=== PATIENT | female | born 1950 | race Caucasian/White ===

== ENCOUNTER 2017-03-10 07:04 | Day surgery (SDC) | payer BC ==
[~2017-03-10 07:04] MED LIST: Buffered Lidocaine 1% SYRIN* 3 ML/SYR SYRINGE INTRADERM ONE; Dexamethasone IV* 4 MG/ML 1 ML (4 MG) IV SLOW PU ONE; Famotidine IV* 10 MG/ML 2 ML (20 mg) IV ONE
[2017-03-10] MEDS ORDERED: Clindamycin 900 MG IVPREMIX(* 900 MG/50 ML SDV IV ONE (07:47)
[2017-03-10] MEDS ORDERED: Dexamethasone IV* 4 MG/ML 1 ML (4 MG) ONE (07:47)
[2017-03-10] MEDS ORDERED: Famotidine IV* 10 MG/ML 2 ML (20 mg) ONE (07:47)
[2017-03-10] MEDS ORDERED: Bupivacaine 0.25% SDV* 30 ML ONE (08:27)
[2017-03-10] MEDS ORDERED: Mineral Oil Sterile, TOPICAL* 25 ML BTL ONE (08:27)
[2017-03-10] MEDS ORDERED: Methylene Blue 0.5 %* 50 MG/10 ML AMP IV ONE (08:27)
[2017-03-10] MEDS ORDERED: Lidocain 1% EPI 1:100,000 * 30 ML MDV ONE (08:27)
[2017-03-10] MEDS ORDERED: Ondansetron INJ* 2 MG/ML VIAL ONE (08:31)
[2017-03-10] MEDS ORDERED: Ketorolac INJ* 30 MG/ML 1 ML VIAL ONE (08:31)
[2017-03-10] MEDS ORDERED: fentaNYL* 50 MCG/ML 2 ML VIAL (100 MCG VIAL) ONE (08:31)
[2017-03-10] MEDS ORDERED: Propofol* 10 MG/ML 20 ML BTL IV PUSH ONE (08:31)
[2017-03-10] MEDS ORDERED: Midazolam* 1 MG/ML 5 ML VIAL (5 MG) ONE (08:31)
[2017-03-10 10:16] VITALS: BP 102/61
== END 2017-03-10 10:29 | disposition home or self-care (01) ==
LOC: OR 07:04
PROVIDERS: ATTEND Plastic Surgery
DX: C43.62 Malignant melanoma of left upper limb, including shoulder (principal); R00.2 Palpitations
CPT/HCPCS: 88305; J1100; J1885; J2250; J2405; J2704; J3010

== ENCOUNTER 2018-11-25 12:25 | Emergency (ER) | payer BC ==
[2018-11-25 12:42] VITALS: BP 127/92
--- NOTE | 2018-11-25 13:07 | UC ---
Laceration HPI - HPI Summary HPI Summary: Caught right index finger in a door jamb, with metal door hitting her finger and lacerating the distal digit. Believes tetanus is up to date, but elects to get one today - History Of Current Complaint Chief Complaint: UCUpperExtremity Stated Complaint: FINGER INJURY Time Seen by Provider: 11/25/18 12:54 Hx Obtained From: Patient Laceration Location: Finger Mechanism Of Injury: Blunt Trauma Onset/Duration: Sudden Onset Pain Intensity: 4 - Allergies/Home Medications Allergies/Adverse Reactions: Allergies Allergy/AdvReac Type Severity Reaction Status Date / Time mercury (elemental) Allergy Unknown Verified 11/25/18 12:42 Reaction Details Penicillins Allergy Hives Verified 11/25/18 12:42 PMH/Surg Hx/FS Hx/Imm Hx Previously Healthy: Yes Cancer History: Other - melanoma left forearm - Surgical History Surgical History: Yes Surgery Procedure, Year, and Place: COLONOSCOPY ONLY. 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 [employer] Lives: With Family Alcohol Use: Weekly Alcohol Amount: 3 GLASSES OF WINE AT MOST Substance Use Type: None Smoking Status (MU): Never Smoked Tobacco Review of Systems All Other Systems Reviewed And Are Negative: Yes Constitutional: Positive: Negative Skin: Positive: Other - laceration Eyes: Positive: Negative ENT: Positive: Negative Respiratory: Positive: Negative Cardiovascular: Positive: Negative Gastrointestinal: Positive: Negative Genitourinary: Positive: Negative Motor: Positive: Negative Neurovascular: Positive: Negative Musculoskeletal: Positive: Negative Neurological: Positive: Negative Psychological: Positive: Negative Is Patient Immunocompromised?: No Physical Exam Triage Information Reviewed: Yes Appearance: Well-Appearing, No Pain Distress Vital Signs: Initial Vital Signs Temp 98.6 F 11/25/18 12:37 Pulse 71 11/25/18 12:37 Resp 18 11/25/18 12:37 BP 127/92 11/25/18 12:37 Pulse Ox 98 11/25/18 12:37 Respiratory Exam: Normal Respiratory: Positive: Lungs clear Cardiovascular Exam: Normal Musculoskeletal Exam: Normal, Other - no pain with flexion of DIP or PIP of 4th digit. Musculoskeletal: Positive: ROM Intact - right hand second digit. Neurological: Positive: Alert Psychological Exam: Normal Skin Exam: Other - laceration distal second digit right hand Images Hands: 1 - laceration from mid nail base along lateral border, extending to palmar surface, where the lac is not full thickness. Laceration Repair - Laceration Repair 1 Description: Irregular - flap laceration distal digit, along lateral border of nail. Laceration Size After Repair: Length (cm) - 3, Width (mm) - 0 Modified For Repair: No Type Injection: Digital - digital block along lateral border of digit. Required second injection along border of laceration of 1.5 cc to get full anaesthesia Anesthesia Used: 2.0% Lido Irrigation With Pressure Irrigation Device: Yes Closure Material: Sutures - After digital block obtained, flap lifting, intact nail bed with no loosening. lateral nail fold sheared, but nail intact Closure Method: Single Layer Laceration Course/Dx - Course/Dx Course Of Treatment: repair of laceration of right hand second digit. - Differential Dx - Laceration/Wound Differental Diagnoses: Laceration - Diagnosis Provider Diagnosis: Laceration of index finger of right hand without complication Discharge - Sign-Out/Discharge Documenting (check all that apply): Patient Departure All imaging exams completed and their final reports reviewed: No Studies - Discharge Plan Condition: Stable Disposition: HOME Patient Education Materials: Finger Laceration (ED), Diphtheria/Pertussis/ Tetanus Vaccine (By injection) Referrals: Dior Benítez MD [Primary Care Provider] - Additional Instructions: You have had a [id number] booster today. Please have the sutures removed in 8 or 9 days--around December 04. Keep the wound clean and dry, and avoid typing with that digit. Monitor for infection. The swelling should decrease after 1 to 2 days, although I suspect that you will have some bruising of the finger. After several days, you can clean the wound and dry it well, with a light application of antibiotic ointment. You can remove the steristrips in 2 or 3 days--they will likely loosen in that time. - Billing Disposition and Condition Condition: STABLE Disposition: Home
[2018-11-25] MEDS ORDERED: Lidocaine 2% PF * 5 ML VIAL INJ ONE ×2 (13:10→13:40)
[2018-11-25] MEDS ORDERED: Lidocaine 2% PF * 5 ML VIAL ONE (13:14)
[2018-11-25] MEDS ORDERED: Tetan/Diph/Pertus SYR(Tdap)* 0.5 ML SYR(BOOSTRIX) use SYR IM ONE (14:12)
== END 2018-11-25 14:30 | disposition home or self-care (01) ==
LOC: UCEAST 12:25
DX: S61.210A Laceration without foreign body of right index finger without damage to nail, initial encounter (principal); Z91.048 Other nonmedicinal substance allergy status; Z88.0 Allergy status to penicillin; W23.0XXA Caught, crushed, jammed, or pinched between moving objects, initial encounter; Y92.9 Unspecified place or not applicable
CPT/HCPCS: 12002; 90471; 90715; 99211; G0463

== ENCOUNTER 2019-07-03 11:14 | Emergency (ER) | payer BC ==
[2019-07-03 12:14] LABS: ABS Basophils 0.1 10^3/ul (0-0.2); ABS Eosinophils 0.1 10^3/ul (0-0.6); ABS Lymphocytes 2.2 10^3/ul (1.0-4.8); ABS Monocytes 0.4 10^3/ul (0-0.8); Eosinophil % 1.1 %; Hematocrit 42 % (35-47); Hemoglobin 13.9 g/dL (12.0-16.0); Lymphocyte % 38.9 %; Mean Corpuscular HGB Conc 33 g/dL (31-36); Mean Corpuscular Hemoglobin 30 pg (27-31); Mean Corpuscular Volume 90 fL (80-97); Mean Platelet Volume 7.8 fL (7.4-10.4); Platelet Count 226 10^3/uL (150-450); Red Blood Count 4.63 10^6 /uL (3.70-4.87); Red Cell Distribution Width 14 % (10-15); White Blood Count 5.8 10^3/uL (3.5-10.8)
[2019-07-03 12:21] LABS: INR 0.95 (0.82-1.09)
[2019-07-03 12:47] LABS: Albumin/Globulin Ratio 1.2 (1-3); BUN/Creatinine Ratio 20.5 (8-20); Calcium 9.4 mg/dL (8.6-10.3); EGFR African American 96.2 (>60); EGFR Non-African American 79.5 (>60); Globulin 3.3 g/dL (2-4); Potassium 4.3 mmol/L (3.5-5.0); Total Bilirubin 0.4 mg/dL (0.2-1.0); Total Protein 7.3 g/dL (6.4-8.9)
[2019-07-03 12:48] LABS: Troponin I 0.01 ng/mL (<0.04)
--- NOTE | 2019-07-03 13:48 | ED ---
HPI Chest Pain - HPI Summary HPI Summary: Pt is a 69 y/o F presenting to the ED with a chief complaint of chest pain. She states she woke up last night with pressure in her chest, and it waxed and waned for about 20 minutes. She states it feels similar to heartburn, and she also reports dizziness, mild anxiety, and recent travel to [facility], [facility], and [facility]. She denies diaphoresis, SOB, LE edema, cough, or hormone use. - History of Current Complaint Chief Complaint: EDChestPainROMI Time Seen by Provider: 07/03/19 13:22 Hx Obtained From: Patient Onset/Duration: Started Hours Ago, Resolved Timing: Intermittent, Lasting Minutes Initial Severity: Moderate Current Severity: None Pain Intensity: 0 Pain Scale Used: 0-10 Numeric Chest Pain Location: Diffuse, Upper Sternal Chest Pain Radiates: No Character: Pressure/Squeezing Aggravating Factor(s): Nothing Alleviating Factor(s): Spontaneous Resolution Associated Signs and Symptoms: Positive: Chest Pain, Anxiety, Dizziness. Negative: Shortness of Breath, Diaphoresis, Cough, Calf Pain/Swelling - Allergy/Home Medications Allergies/Adverse Reactions: Allergies Allergy/AdvReac Type Severity Reaction Status Date / Time mercury (elemental) Allergy Unknown Verified 11/25/18 12:42 Reaction Details Penicillins Allergy Hives Verified 11/25/18 12:42 PMH/Surg Hx/FS Hx/Imm Hx Previously Healthy: Yes Endocrine/Hematology History: Denies: Hx Diabetes GI History: Reports: Hx Irritable Bowel - CONTROLLED WITH DIET, SYMPTOMS HAVE RESOLVED Musculoskeletal History: Reports: Hx Tendonitis - HEALED WITH RESTING Sensory History: Reports: Hx Cataracts - BEGINNING STAGE BI-LAT, Hx Contacts or Glasses - WEARS GLASSES Denies: Hx Hearing Aid Opthamlomology History: Reports: Hx Cataracts - BEGINNING STAGE BI-LAT, Hx Contacts or Glasses - WEARS GLASSES Psychiatric History: Reports: Hx Anxiety - WHEN PT WAS 37 YRS OLD, BUT NOT SINCE THEN - Cancer History Cancer Type, Location and Year: melanoma Hx Chemotherapy: No Hx Radiation Therapy: No - Surgical History Surgery Procedure, Year, and Place: COLONOSCOPY ONLY. melanoma removal Hx Anesthesia Reactions: No - PT HAS NEVER HAD SURGERY Infectious Disease History: No Infectious Disease History: Reports: Traveled Outside the [place] in Last 30 Days - [facility] - Family History Known Family History: Negative: Diabetes - Social History Alcohol Use: Weekly Alcohol Amount: 3 GLASSES OF WINE AT MOST Hx Substance Use: No Substance Use Type: Reports: None Hx Tobacco Use: No Smoking Status (MU): Never Smoked Tobacco Review of Systems Negative: Skin Diaphoresis Positive: Chest Pain Negative: Shortness Of Breath, Cough Negative: Edema Neurological: Other - dizziness Positive: Anxious All Other Systems Reviewed And Are Negative: Yes Physical Exam - Summary Physical Exam Summary: Constitutional: Well-developed, Well-nourished, Alert. (-) Distressed Skin: Warm, Dry HENT: Normocephalic; Atraumatic Eyes: Conjunctiva normal Neck: Musculoskeletal ROM normal neck. (-) JVD, (-) Stridor, (-) Tracheal deviation Cardio: Rhythm regular, rate normal, Heart sounds normal; Intact distal pulses; The pedal pulses are 2+ and symmetric. Radial pulses are 2+ and symmetric. (-) Murmur Pulmonary/Chest wall: Effort normal. (-) Respiratory distress, (-) Wheezes, (-) Rales Abd: Soft, (-) tenderness, (-) Distension, (-) Guarding, (-) Rebound Musculoskeletal: (-) Edema Lymph: (-) Cervical adenopathy Neuro: Alert, Oriented x3 Psych: Mood and affect Normal Triage Information Reviewed: Yes Vital Signs On Initial Exam: Initial Vitals Temp Pulse Resp BP Pulse Ox 96.9 F 72 18 132/87 99 07/03/19 11:21 07/03/19 11:21 07/03/19 11:21 07/03/19 11:21 07/03/19 11:21 Vital Signs Reviewed: Yes Diagnostics - Vital Signs Vital Signs Temp Pulse Resp BP Pulse Ox 07/03/19 11:21 96.9 F 72 18 132/87 99 - Laboratory Lab Results: Lab Results 07/03/19 07/03/19 07/03/19 Range/Units 12:07 12:07 12:07 WBC 5.8 (3.5-10.8) 10^3/uL RBC 4.63 (3.70-4.87) 10^6 /uL Hgb 13.9 (12.0-16.0) g/dL Hct 42 (35-47) % MCV 90 (80-97) fL MCH 30 (27-31) pg MCHC 33 (31-36) g/dL RDW 14 (10-15) % Plt Count 226 (150-450) 10^3/uL MPV 7.8 (7.4-10.4) fL Neut % (Auto) 51.7 % Lymph % (Auto) 38.9 % [place] % (Auto) 7.2 % Eos % (Auto) 1.1 % Baso % (Auto) 1.1 % Absolute Neuts (auto) 3.0 (1.5-7.7) 10^3/ul Absolute Lymphs (auto) 2.2 (1.0-4.8) 10^3/ul Absolute Monos (auto) 0.4 (0-0.8) 10^3/ul Absolute Eos (auto) 0.1 (0-0.6) 10^3/ul Absolute Basos (auto) 0.1 (0-0.2) 10^3/ul Absolute Nucleated RBC 0.0 10^3/ul Nucleated RBC % 0.0 INR (Anticoag Therapy) 0.95 (0.82-1.09) D-Dimer, Quantitative Pending Sodium 138 (135-145) mmol/L Potassium 4.3 (3.5-5.0) mmol/L Chloride 108 (101-111) mmol/L Carbon Dioxide 26 (22-32) mmol/L Anion Gap 4 (2-11) mmol/L BUN 15 (6-24) mg/dL Creatinine 0.73 (0.51-0.95) mg/dL Est GFR ( Amer) 96.2 (>60) Est GFR (Non-Af Amer) 79.5 (>60) BUN/Creatinine Ratio 20.5 H (8-20) Glucose 99 (70-100) mg/dL Calcium 9.4 (8.6-10.3) mg/dL Total Bilirubin 0.40 (0.2-1.0) mg/dL AST 22 (13-39) U/L ALT 20 (7-52) U/L Alkaline Phosphatase 71 (34-104) U/L Troponin I 0.01 (<0.04) ng/mL Total Protein 7.3 (6.4-8.9) g/dL Albumin 4.0 (3.2-5.2) g/dL Globulin 3.3 (2-4) g/dL Albumin/Globulin Ratio 1.2 (1-3) Result Diagrams: 07/03/19 12:07 07/03/19 12:07 Lab Statement: Any lab studies that have been ordered have been reviewed, and results considered in the medical decision making process. - Radiology CXR Radiology Interpretation Completed By: Radiologist Summary of Radiographic Findings: No active cardiopulmonary disease. ED physician has reviewed this report. - EKG 1116 Cardiac Rate: NL - 69bpm EKG Rhythm: Sinus Rhythm ST Segment: Non-Specific Ectopy: None Summary of EKG Findings: EKG at 1116 shows NSR at 69bpm with biphasic T waves in V2 and V3. No STEMI, otherwise nml EKG. Re-Evaluation - Re-Evaluation 1st re-eval Re-Evaluation Time: 15:00 Change: Improved Comment: The pt states that the Maalox helped alleviate her pain. Upon further questioning, the pt revealed that she ate spicy food, drank coffee, as well as drank alcohol late last night, so this is likely to have caused the heartburn- like pain that she was feeling. Chest Pain Course/Dx - Course Course Of Treatment: Patient is here with an episode of chest pain that occurred last night. Patient's had a similar episode in the past. Patient had serial troponins which showed no elevation. Patient EKG which showed no evidence of ischemia. Patient had a risk factor for PE with recent long- distance travel but had a negative d-dimer here. Patient had a negative chest x -ray for any acute abnormality. Patient's symptoms resolved with ox. Patient did have a diet last night consistent with risk factors for acid reflux. Patient does not need an emergent stress test and was asked to call her PCP today to follow-up for possible stress test. - Diagnoses Provider Diagnoses: Chest pain Discharge - Sign-Out/Discharge Documenting (check all that apply): Patient Departure Patient Received Moderate/Deep Sedation with Procedure: No - Discharge Plan Condition: Stable Disposition: HOME Patient Education Materials: Chest Pain (ED) Referrals: Dior Benítez MD [Primary Care Provider] - Additional Instructions: When you leave the emergency department, please go to the store and purchase Maalox. Additionally, please follow the diet that we discussed while you were in the ED. Follow up with your primary care provider to see if they would like you to have a stress test done. Return to the Emergency Department with any new or worsening symptoms. - Billing Disposition and Condition Condition: STABLE Disposition: Home - Attestation Statements Document Initiated by Mirna: Yes Documenting Scribe: Lizette Rawls Provider For Whom Mirna is Documenting (Include Credential): David Bueno MD. Scribe Attestation: Lizette Callaway, scribed for David Bueno MD. on 07/03/19 at 1540. Scribe Documentation Reviewed: Yes Provider Attestation: The documentation as recorded by the perriibe, Lizette Rawls accurately reflects the service I personally performed and the decisions made by David gallegos MD. Status of Scribe Document: Viewed
[2019-07-03] MEDS ORDERED: Al Hydrox/Mg Hydrox/Simet LIQ* 30 ML UDC PO ONE (14:16)
[2019-07-03 15:49] VITALS: BP 121/77
== END 2019-07-03 15:53 | disposition home or self-care (01) ==
LOC: ED 11:14
DX: R07.9 Chest pain, unspecified (principal); Z88.0 Allergy status to penicillin
CPT/HCPCS: 36415; 71046; 80053; 84484; 85025; 85379; 85610; 93005; 99283; A9270-GY

== ENCOUNTER 2019-07-19 08:46 | Observation (INO) | payer BC ==
[2019-07-19] MEDS ORDERED: Aspirin 81 mg CHEW TAB* 81 MG TAB.CHEW PO ONE (09:14)
[2019-07-19 09:21] LABS: ABS Eosinophils 0.1 10^3/ul (0-0.6); ABS Monocytes 0.4 10^3/ul (0-0.8); ABS Neutrophils 2.3 10^3/ul (1.5-7.7); Eosinophil % 1.4 %; Hematocrit 42 % (35-47); Hemoglobin 14.2 g/dL (12.0-16.0); Mean Corpuscular HGB Conc 34 g/dL (31-36); Mean Corpuscular Hemoglobin 31 pg (27-31); Mean Corpuscular Volume 89 fL (80-97); Mean Platelet Volume 8.1 fL (7.4-10.4); Nucleated Red Blood Cells % 0.1; Platelet Count 228 10^3/uL (150-450); Red Blood Count 4.65 10^6 /uL (3.70-4.87); Red Cell Distribution Width 14 % (10-15); White Blood Count 4.8 10^3/uL (3.5-10.8)
[2019-07-19 10:12] LABS: Troponin I 0.01 ng/mL (<0.04)
[2019-07-19 10:14] LABS: Myoglobin 19.9 ng/mL (14.3-65.8)
[2019-07-19 10:16] LABS: CKMB ng/mL 1.8 ng/mL (0.6-6.3)
[2019-07-19 10:18] LABS: Albumin 4.1 g/dL (3.2-5.2); Albumin/Globulin Ratio 1.3 (1-3); BUN/Creatinine Ratio 18.8 (8-20); Calcium 9.4 mg/dL (8.6-10.3); EGFR African American 80.7 (>60); EGFR Non-African American 66.7 (>60); Globulin 3.1 g/dL (2-4); Potassium 3.7 mmol/L (3.5-5.0); Total Bilirubin 0.6 mg/dL (0.2-1.0); Total Protein 7.2 g/dL (6.4-8.9)
--- NOTE | 2019-07-19 10:31 | ED ---
HPI Chest Pain - HPI Summary HPI Summary: 69 year old F presenting to [facility] accompanied by a female oncology physician assistant with a chief complaint of intermittent chest pain since this morning after feeling mild emotional distress and anxiety induced by a phone call. Patient reports feeling a cramping and burning pain comparable to acid reflux in the center of her chest and pressure slightly above the location of burning, radiating to her neck and occasionally her left arm. Patient rates the overall pain 6/10 in severity. Symptoms aggravated by physical and emotional stimulation. Symptoms alleviated by remaining still. Patient reports having an chest pain episode yesterday 07/18/19 while exercising. After this episode she reported to her primary care physician who found markers in her blood test, such as high cholesterol. Patient also reports a past visit on 07/03/19 for a similar chief complaint. Patient does not have a dehydrator, and had last performed a stress test fifteen years ago. Patient denies smoking but confirms alcohol intake 2x a week, and reports a family history of angina pectoris in her father and breast cancer in her maternal grandmother. Before patient's visit, the ED provider discussed the patient's case with her primary care provider, Dr. Benítez. - History of Current Complaint Chief Complaint: EDChestPainROMI Time Seen by Provider: 07/19/19 08:50 Hx Obtained From: Patient Onset/Duration: Started Hours Ago - this morning today 07/19/19 Timing: Intermittent - patient experienced an episode yesterday Current Severity: Moderate Pain Intensity: 6 Pain Scale Used: 0-10 Numeric Chest Pain Location: Mid Sternal - burning sensation, Upper Sternal - pressure Chest Pain Radiates: Yes Chest Pain Radiates To:: Arm - occasionally left arm, Other - neck Character: Burning - mid sternal, Pressure/Squeezing - upper sternal pressure Aggravating Factor(s): Exertion - exercise onset a chest pain episode yesterday , 07/18/19, Other: - emotional stimulation (i.e. anxiety, excitement) Alleviating Factor(s): Rest - remaining still, per patient - Allergy/Home Medications Allergies/Adverse Reactions: Allergies Allergy/AdvReac Type Severity Reaction Status Date / Time mercury (elemental) Allergy Unknown Verified 07/19/19 09:03 Reaction Details Penicillins Allergy Hives Verified 07/19/19 09:03 Home Medications: Home Medications Aspirin [Adult Low Dose Aspirin EC] 81 mg PO DAILY 07/19/19 [History Confirmed 07/19/19] Omeprazole 20 mg PO DAILY 07/19/19 [History Confirmed 07/19/19] PMH/Surg Hx/FS Hx/Imm Hx Endocrine/Hematology History: Denies: Hx Diabetes GI History: Reports: Hx Irritable Bowel - CONTROLLED WITH DIET, SYMPTOMS HAVE RESOLVED Musculoskeletal History: Reports: Hx Tendonitis - HEALED WITH RESTING Sensory History: Reports: Hx Cataracts - BEGINNING STAGE BI-LAT, Hx Contacts or Glasses - WEARS GLASSES Denies: Hx Hearing Aid Opthamlomology History: Reports: Hx Cataracts - BEGINNING STAGE BI-LAT, Hx Contacts or Glasses - WEARS GLASSES Psychiatric History: Reports: Hx Anxiety - WHEN PT WAS 37 YRS OLD, BUT NOT SINCE THEN - Cancer History Cancer Type, Location and Year: melanoma Hx Chemotherapy: No Hx Radiation Therapy: No - Surgical History Surgery Procedure, Year, and Place: COLONOSCOPY ONLY. melanoma removal Hx Anesthesia Reactions: No - PT HAS NEVER HAD SURGERY Infectious Disease History: No Infectious Disease History: Denies: Traveled Outside the [place] in Last 30 Days - Family History Known Family History: Negative: Diabetes Family History: family history of angia pectoris in her father and breast cancer in her maternal grandmother. - Social History Alcohol Use: Weekly Alcohol Amount: 3 GLASSES OF WINE AT MOST Hx Substance Use: No Substance Use Type: Reports: None Hx Tobacco Use: No Smoking Status (MU): Never Smoked Tobacco Review of Systems Positive: Chest Pain Positive: Other - neck and arm pain radiating occasional from chest All Other Systems Reviewed And Are Negative: Yes Physical Exam - Summary Physical Exam Summary: VITAL SIGNS: Reviewed. GENERAL: Patient is a well-developed and nourished FEMALE who is lying comfortable in the stretcher. Patient is not in any acute respiratory distress. HEAD AND FACE: No signs of trauma. No ecchymosis, hematomas or skull depressions. No sinus tenderness. EYES: PERRLA, EOMI x 2, No injected conjunctiva, no nystagmus. EARS: Hearing grossly intact. Ear canals and tympanic membranes are within normal limits. MOUTH: Oropharynx within normal limits. NECK: Supple, trachea is midline, no adenopathy, no JVD, no carotid bruit, no c- spine tenderness, neck with full ROM. CHEST: Symmetric, no tenderness at palpation. LUNGS: Clear to auscultation bilaterally. No wheezing or crackles. CVS: Regular rate and rhythm, S1 and S2 present, no murmurs or gallops appreciated. ABDOMEN: Soft, non-tender. No signs of distention. No rebound, no guarding, and no masses palpated. Bowel sounds are normal. EXTREMITIES: FROM in all major joints, no edema, no cyanosis or clubbing. NEURO: Alert and oriented x 3. No acute neurological deficits. Speech is normal and follows commands. SKIN: Dry and warm. Triage Information Reviewed: Yes Vital Signs On Initial Exam: Initial Vitals Temp Pulse Resp BP Pulse Ox 98.4 F 63 17 147/93 99 07/19/19 08:58 07/19/19 08:58 07/19/19 08:58 07/19/19 08:58 07/19/19 08:58 Vital Signs Reviewed: Yes Diagnostics - Vital Signs Vital Signs Temp Pulse Resp BP Pulse Ox 07/19/19 09:35 68 29 149/97 97 07/19/19 09:12 99 07/19/19 09:05 68 19 147/97 99 07/19/19 08:58 98.4 F 63 17 147/93 99 - Laboratory Lab Results: Lab Results 07/19/19 07/19/19 07/19/19 Range/Units 09:11 09:11 09:12 WBC 4.8 (3.5-10.8) 10^3/uL RBC 4.65 (3.70-4.87) 10^6 /uL Hgb 14.2 (12.0-16.0) g/dL Hct 42 (35-47) % MCV 89 (80-97) fL MCH 31 (27-31) pg MCHC 34 (31-36) g/dL RDW 14 (10-15) % Plt Count 228 (150-450) 10^3/uL MPV 8.1 (7.4-10.4) fL Neut % (Auto) 47.5 % Lymph % (Auto) 41.0 % [place] % (Auto) 9.2 % Eos % (Auto) 1.4 % Baso % (Auto) 0.9 % Absolute Neuts (auto) 2.3 (1.5-7.7) 10^3/ul Absolute Lymphs (auto) 2.0 (1.0-4.8) 10^3/ul Absolute Monos (auto) 0.4 (0-0.8) 10^3/ul Absolute Eos (auto) 0.1 (0-0.6) 10^3/ul Absolute Basos (auto) 0.0 (0-0.2) 10^3/ul Absolute Nucleated RBC 0.0 10^3/ul Nucleated RBC % 0.1 Sodium 140 (135-145) mmol/L Potassium 3.7 (3.5-5.0) mmol/L Chloride 106 (101-111) mmol/L Carbon Dioxide 28 (22-32) mmol/L Anion Gap 6 (2-11) mmol/L BUN 16 (6-24) mg/dL Creatinine 0.85 (0.51-0.95) mg/dL Est GFR ( Amer) 80.7 (>60) Est GFR (Non-Af Amer) 66.7 (>60) BUN/Creatinine Ratio 18.8 (8-20) Glucose 82 (70-100) mg/dL Lactic Acid (0.5-2.0) mmol/L Calcium 9.4 (8.6-10.3) mg/dL Total Bilirubin 0.60 (0.2-1.0) mg/dL AST 19 (13-39) U/L ALT 18 (7-52) U/L Alkaline Phosphatase 77 (34-104) U/L Total Creatine Kinase 46 (10-223) U/L CK-MB (CK-2) 1.8 (0.6-6.3) ng/mL Myoglobin 19.9 (14.3-65.8) ng/mL Troponin I 0.01 (<0.04) ng/mL B-Natriuretic Peptide 45 (<=100) pg/mL Total Protein 7.2 (6.4-8.9) g/dL Albumin 4.1 (3.2-5.2) g/dL Globulin 3.1 (2-4) g/dL Albumin/Globulin Ratio 1.3 (1-3) TSH Pending 07/19/19 Range/Units 09:12 WBC (3.5-10.8) 10^3/uL RBC (3.70-4.87) 10^6 /uL Hgb (12.0-16.0) g/dL Hct (35-47) % MCV (80-97) fL MCH (27-31) pg MCHC (31-36) g/dL RDW (10-15) % Plt Count (150-450) 10^3/uL MPV (7.4-10.4) fL Neut % (Auto) % Lymph % (Auto) % [place] % (Auto) % Eos % (Auto) % Baso % (Auto) % Absolute Neuts (auto) (1.5-7.7) 10^3/ul Absolute Lymphs (auto) (1.0-4.8) 10^3/ul Absolute Monos (auto) (0-0.8) 10^3/ul Absolute Eos (auto) (0-0.6) 10^3/ul Absolute Basos (auto) (0-0.2) 10^3/ul Absolute Nucleated RBC 10^3/ul Nucleated RBC % Sodium (135-145) mmol/L Potassium (3.5-5.0) mmol/L Chloride (101-111) mmol/L Carbon Dioxide (22-32) mmol/L Anion Gap (2-11) mmol/L BUN (6-24) mg/dL Creatinine (0.51-0.95) mg/dL Est GFR ( Amer) (>60) Est GFR (Non-Af Amer) (>60) BUN/Creatinine Ratio (8-20) Glucose (70-100) mg/dL Lactic Acid 0.8 (0.5-2.0) mmol/L Calcium (8.6-10.3) mg/dL Total Bilirubin (0.2-1.0) mg/dL AST (13-39) U/L ALT (7-52) U/L Alkaline Phosphatase (34-104) U/L Total Creatine Kinase (10-223) U/L CK-MB (CK-2) (0.6-6.3) ng/mL Myoglobin (14.3-65.8) ng/mL Troponin I (<0.04) ng/mL B-Natriuretic Peptide (<=100) pg/mL Total Protein (6.4-8.9) g/dL Albumin (3.2-5.2) g/dL Globulin (2-4) g/dL Albumin/Globulin Ratio (1-3) TSH Result Diagrams: 07/19/19 09:12 07/19/19 09:11 Lab Statement: Any lab studies that have been ordered have been reviewed, and results considered in the medical decision making process. - Radiology CXR Radiology Interpretation Completed By: Radiologist Summary of Radiographic Findings: Impresion: no acute cardiopulmonary process by radiograph. The ED physician has reviewed this report. - EKG 0849 Cardiac Rate: NL - 62 beats per minute EKG Rhythm: Sinus Rhythm EKG Comparison: No Significant Change - similar to previous ekg taken on 07/03/19 Summary of EKG Findings: sinus rhythm 62 bpm, T-wave inversions in V2 and V3, ST depressions in V4 through V6 Re-Evaluation - Re-Evaluation First Eval Re-Evaluation Time: 10:59 Comment: Discussed admission and stress test with patient, patient agrees. Chest Pain Course/Dx - Course Assessment/Plan: 69 year old F presenting to [facility] accompanied by a female oncology physician assistant with a chief complaint of intermittent chest pain since this morning after feeling mild emotional distress and anxiety induced by a phone call. Patient reports feeling a cramping and burning pain comparable to acid reflux in the center of her chest and pressure slightly above the location of burning, radiating to her neck and occasionally her left arm. Patient rates the overall pain 6/10 in severity. Symptoms aggravated by physical and emotional stimulation. Symptoms alleviated by remaining still. Patient reports having an chest pain episode yesterday 07/18/19 while exercising. After this episode she reported to her primary care physician who found markers in her blood test, such as high cholesterol. Patient also reports a past visit on 07/03/19 for a similar chief complaint. Patient does not have a dehydrator, and had last performed a stress test fifteen years ago. Patient denies smoking but confirms alcohol intake 2x a week, and reports a family history of angina pectoris in her father and breast cancer in her maternal grandmother. Before patient's visit , the ED provider discussed the patient's case with her primary care provider, Dr. Benítez. Blood test results show no abnormalities. Chest x-ray shows no acute pathology. EKG shows a normal sinus rhythm without any ST elevations. Patient has inverted T waves in V2 and V3, and has ST depressions in V4 through V6 which is similar to her past EKG. In the ED course the patient was placed in a paper sales manager, obtained IV access, and was given aspirin and nitroglycerin. Dr. Benítez, the primary care physician for this patient, reported that she spoke with Dr. Pena from cardiology and she recommended to send the patient to the ED and the dehydrator multi operation forming machine setter will see the patient. I discussed the case with Dr. Sethi dehydrator on-call and he recommends for the patient to be admitted to the hospitalist to order the stress test. If the stress test is abnormal, the patient will consult Dr. Sethi. The ED physician discussed the case with Dr. Sutherland from the hospital services who accepted the patient for admission. - Chest Pain Differential Diagnosis/HQI/PQRI: Acute VA, ACS, Angina, CHF, Chest Wall, GI Disease, Lower Respiratory Infection - Diagnoses Provider Diagnoses: Stable angina - Provider Notifications Discussed Care Of Patient With: Kate Sethi Time Discussed With Above Provider: 10:45 Instructed by Provider To: Other - ED provider called Dr. Kate Sethi dehydrator, regarding the patient's case. He recommended admission with a stress test. If the stress test is abnormal, patient can consult with Dr. Sethi after being discharged from the hospital. [address] Sutherland hospitalist, who agreed to admission of patient. Discharge ED - Sign-Out/Discharge Documenting (check all that apply): Patient Departure - patient is accepted for admission by Dr. Sutherland, hospitalist Patient Received Moderate/Deep Sedation with Procedure: No - Discharge Plan Condition: Stable Disposition: ADMITTED TO [facility] Referrals: Dior Benítez MD [Primary Care Provider] - - Billing Disposition and Condition Condition: STABLE Disposition: Admitted to [facility] - Attestation Statements Document Initiated by [facility]: Yes Documenting Scribe: Kailey Davis Provider For Whom [facility] is Documenting (Include Credential): Garrett Sapp MD Scribe Attestation: Kailey Callaway, scribed for Garrett Sapp MD on at 1158. Scribe Documentation Reviewed: Yes Provider Attestation: The documentation as recorded by the amelia, Kailey Davis accurately reflects the service I personally performed and the decisions made by , Garrett Sapp MD Status of Scribe Document: Ready
[2019-07-19 10:41] LABS: TSH (Thyroid Stimulating Horm) 1.65 mcIU/mL (0.34-5.60)
[2019-07-19] MEDS ORDERED: Nitroglycerin TAB 0.4 MG* 0.4 MG TAB SL ONE (10:44)
[2019-07-19] MEDS ORDERED: Nitroglycerin TAB 0.4 MG* 0.4 MG TAB SL PRN (12:17)
--- NOTE | 2019-07-19 14:01 | HP ---
HISTORY AND PHYSICAL: DATE OF ADMISSION: 07/19/19 PRIMARY CARE PROVIDER: Dr. Benítez. ATTENDING PHYSICIAN: Dr. Hampton * (dictated by DAISY Mai). CHIEF COMPLAINT: Chest "cramp." HISTORY OF PRESENT ILLNESS: Ms. Gill is a 69-year-old female with a past medical history of IBS and mild KILO not requiring CPAP, who presented to the ER today at the suggestion of her primary care Dr. Benítez who noted an elevated troponin of 0.04 on laboratory testing yesterday after complaints of chest pain. This patient relates a history of chest pain that started 07/02/19 and brought her to the ER the following day where she had a workup that revealed negative troponins x2. The patient states that the pain is midsternal and is intermittent. She notes that the pain only occurs with activity and emotional stress or anxiety. She exercises 2 times per week performing weight lifting activities and intermittent aerobics. She notes that her chest pain which she describes as a cramping sensation has been leading her to end her exercises early. Again the pain only occurs with exercising or activity and emotional stress or anxiety. She has no associated diaphoresis or shortness of breath, although she does note that she has had a slight increase in shortness of breath for the last 1 year. She also notes decreased capacity for activity during this amount of time. She notes that she occasionally has palpitations and feelings of presyncope without syncope with use of caffeine or in situations that cause her anxiety. The patient states that she was on her treadmill yesterday, and she had to stop due to the cramping feeling in her chest which radiated to her left arm. This prompted her to call her primary care provider who ordered EKG, troponins, and other blood work. Her troponin was noted to be elevated at 0.04. She was also noted to have an LDL of 163. Today her primary care provider called her and suggested seeking additional workup at the ER. The patient states that when her chest pain is increased, she does have associated lightheadedness or dizziness but has never synopsized. She notes that she has some joint pain which has not changed recently. She has an occasional cough. Review of systems is otherwise negative after a 14-point review of systems was performed. In the ER, the patient received a full workup including blood work that shows no gross abnormality. Troponins have been negative x1 with the second troponin pending. Blood work from yesterday shows a troponin of 0.04, elevated cholesterol, elevated LDL. Chest x-ray showed no acute process. ECG was obtained and showed mild ST depression in V3 to V6. The patient was given aspirin 324 mg and nitro sublingual 0.4 in the ER. The hospitalist team was asked to evaluate the patient for admission. PAST MEDICAL HISTORY: 1. IBS, diet controlled. 2. Mild bilateral cataracts. 3. Obstructive sleep apnea, mild, not requiring CPAP. 4. History of melanoma, status post removal from left forearm. PAST SURGICAL HISTORY: 1. Left forearm melanoma removal 05/10/17. 2. Colonoscopy. HOME MEDICATIONS: 1. Omeprazole 20 mg p.o. daily. 2. Aspirin 81 mg p.o. daily. Both of these medications were started yesterday by her primary care provider. Prior to this, she was not on any medications. ALLERGIES: MERCURY per allergy testing; PENICILLIN, hives. FAMILY HISTORY: Father had a history of angina. Mother had a history of hyperlipidemia and is due to emphysema. Maternal grandfather had diabetes mellitus. Maternal grandmother, breast cancer. No family history of CVA. SOCIAL HISTORY: The patient denies current or former use of tobacco products. She drinks alcohol 2 to 3 times per week. She does not use any other illicit drugs, but notes that she does use vitamins and minerals. 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 She is with 2 children. She lives with her . In the event that she is unable to make her own medical decision, she has appointed her Viral Gill to be her surrogate decision maker. REVIEW OF SYSTEMS: A 14-point review of systems was performed and all the pertinent positives and negatives are in the HPI. All other systems are negative. PHYSICAL EXAMINATION GENERAL: Ms. Gill is a well-developed, well-nourished, very mildly overweight 69- year-old female who is sitting up in bed. She appears to be in no acute distress. She is pleasant and cooperative. VITAL SIGNS: Temperature 98.4 temporal, heart rate 65, respiratory rate 19, oxygen saturation 99% on room air, blood pressure 123/83. HEENT: Visual brice are grossly intact. PERRL. EOMI. Nonicteric sclerae. Hearing grossly intact. Oral mucous membranes are moist. There are no lesions. The tongue protrudes at midline. Symmetrical soft palate elevation. The pharynx is clear. RESPIRATORY: Symmetrical chest expansion without use of accessory muscles. Lungs are clear to auscultation bilaterally with no rhonchi, wheezes, or rales. There is no digital clubbing or cyanosis. CARDIOVASCULAR: Regular rate and rhythm with S1, S2 present without murmurs, rubs, clicks, or gallops. There is no JVD. There is no peripheral edema. Radial and pedal pulses are palpable. ABDOMEN: Flat. Bowel sounds noted in all quadrants. The abdomen is soft. There is no tenderness to palpation. There is no hepatosplenomegaly. MUSCULOSKELETAL: Full range of motion without pain or deformities. She is able to move all of her extremities with equal motor strength in bilateral upper and lower extremities. NEUROLOGIC: The patient is awake. She is alert and oriented x3 with cranial nerves grossly intact. She is able to move all of her extremities. Motor strength 5/5 in bilateral upper and lower extremities. DIAGNOSTIC STUDIES AND LABORATORY DATA: CBC without gross abnormality. Chem panel without gross abnormality. Troponin 0.01, yesterday troponin was 0.04. TSH 1.65. Yesterday's lab work reveals triglycerides 155, cholesterol 242, LDL 163, HDL 47.8. Chest x-ray, impression: No acute cardiopulmonary process by radiograph. ECG shows normal sinus rhythm with a rate of 62. There are ST depressions noted in V3, V4, V5, and V6. ASSESSMENT AND PLAN: Ms. Gill is a 69-year-old female with a past medical history of mild obstructive sleep apnea which does not require CPAP; who presented to the ER today after greater than 2 weeks of intermittent chest pain associated with activity or emotional stress/anxiety. She was found to have ST depressions in the anterolateral leads. Troponin negative x1. The patient will be admitted on observation for: 1. Chest pain. The patient warrants ACS workup due to intermittent midsternal chest pain since 07/02/19 that is associated with activity and stress. She notes yesterday that the pain began to radiate down the left arm when she was using the treadmill. She followed up with her primary care provider who ordered troponin which was 0.04 yesterday. Her primary care provider suggested the patient be seen in the ER for further workup. In the ER, she was given aspirin 324 and nitro sublingual. Her LDL cholesterol from yesterday was noted to be 163. She will be started on high- dose atorvastatin. Hemoglobin A1c has been ordered for risk stratification. She will be continued on aspirin 81 mg daily. Pending second troponin, a stress echo has been ordered for today. We will continue to trend her troponins and stress test will be performed. 2. Gastroesophageal reflux disease. Primary care provider has ordered omeprazole 20 starting yesterday. This does not appear to have relieved the patient's symptoms thus far but she just began the medication yesterday. We will continue it while she is in the hospital. 3. DVT prophylaxis: According to DVT Risk Assessment, the patient scores 3 placing her at high risk. She will be started on Lovenox. 4. Code status: Full code. TIME SPENT: Approximately 60 minutes was spent on this admission, greater than half that time was spent with the patient, obtaining history, performing physical, and reviewing the plan of care. The case has been reviewed with my attending Dr. Hampton who is in agreement with the plan of care. DAISY GUAJARDO [id number]/CPS #: [id number] ANA
[2019-07-19] MEDS: Enoxaparin(*) 40 MG/0.4 ML SYR SUBCUT SCH (15:52)
[2019-07-19] MEDS ORDERED: Atorvastatin* 80 MG TAB PO ONE (21:00)
[2019-07-20] MEDS: Aspirin EC TAB* 81 MG TAB.EC PO SCH (10:52)
[2019-07-20] MEDS: Pantoprazole TAB * 40 MG TAB PO SCH (10:53)
[2019-07-20] MEDS ORDERED: Diazepam TAB(*) 5 MG PO PRN (11:03)
[2019-07-20] MEDS ORDERED: diPHENhydraMINE PO* 50 MG PO PRN (11:03)
[2019-07-20] MEDS: Enoxaparin(*) 40 MG/0.4 ML SYR SUBCUT SCH (11:08)
[2019-07-20] MEDS ORDERED: NS 0.9% 1000 ML** 1,000 ML IV SCH ×2 (11:15→15:30)
--- NOTE | 2019-07-20 11:52 | PN ---
Subjective Date of Service: 07/20/19 Interval History: Pt doing well this morning, although somewhat anxious for heart cath procedure due this afternoon. She notes CP during stress testing, but not before or after. She has c/o slight frontal headache. No other complaints this morning. Objective Active Medications: Aspirin (Aspirin Ec Tab*) 81 mg PO DAILY SHIRA Diazepam (Valium Tab(*)) 5 mg PO ONCE PRN Diphenhydramine HCl (Benadryl Po*) 50 mg PO ONCE PRN Enoxaparin Sodium (Lovenox(*)) 40 mg SUBCUT Q24H SHIRA Sodium Chloride (Ns 0.9% 1000 Ml) 1,000 mls @ 75 mls/hr IV .per rate SHIRA Nitroglycerin (Nitroglycerin Tab 0.4 Mg*) 0.4 mg SL Q5M PRN Pantoprazole Sodium (Protonix Tab*) 40 mg PO DAILY SHIRA Vital Signs: Temp Pulse Resp BP Pulse Ox 98 F 63 18 114/76 97 07/20/19 07:15 07/20/19 07:15 07/20/19 07:15 07/20/19 07:15 07/20/19 07:15 Oxygen Devices in Use Now: None Appearance: Pt is sitting up in bed with HOB elevated. She appears comfortable , but mildly anxious. She is in no acute distress. Eyes: No Scleral Icterus, PERRLA Ears/Nose/Mouth/Throat: NL Teeth, Lips, Gums, Clear Oropharnyx, Mucous Membranes Moist Neck: NL Appearance and Movements; NL JVP, Trachea Midline Respiratory: Symmetrical Chest Expansion and Respiratory Effort, Clear to Auscultation Cardiovascular: NL Sounds; No Murmurs; No JVD, RRR, No Edema Abdominal: NL Sounds; No Tenderness; No Distention, No Hepatosplenomegaly Extremities: No Edema, No Clubbing, Cyanosis Neurological: Alert and Oriented x 3 Result Diagrams: 07/19/19 09:12 07/19/19 09:11 Additional Lab and Data: Lab Results 07/19/19 07/19/19 07/19/19 Range/Units 09:11 09:11 09:12 WBC 4.8 (3.5-10.8) 10^3/uL RBC 4.65 (3.70-4.87) 10^6 /uL Hgb 14.2 (12.0-16.0) g/dL Hct 42 (35-47) % MCV 89 (80-97) fL MCH 31 (27-31) pg MCHC 34 (31-36) g/dL RDW 14 (10-15) % Plt Count 228 (150-450) 10^3/uL MPV 8.1 (7.4-10.4) fL Neut % (Auto) 47.5 % Lymph % (Auto) 41.0 % [place] % (Auto) 9.2 % Eos % (Auto) 1.4 % Baso % (Auto) 0.9 % Absolute Neuts (auto) 2.3 (1.5-7.7) 10^3/ul Absolute Lymphs (auto) 2.0 (1.0-4.8) 10^3/ul Absolute Monos (auto) 0.4 (0-0.8) 10^3/ul Absolute Eos (auto) 0.1 (0-0.6) 10^3/ul Absolute Basos (auto) 0.0 (0-0.2) 10^3/ul Absolute Nucleated RBC 0.0 10^3/ul Nucleated RBC % 0.1 Sodium 140 (135-145) mmol/L Potassium 3.7 (3.5-5.0) mmol/L Chloride 106 (101-111) mmol/L Carbon Dioxide 28 (22-32) mmol/L Anion Gap 6 (2-11) mmol/L BUN 16 (6-24) mg/dL Creatinine 0.85 (0.51-0.95) mg/dL Est GFR ( Amer) 80.7 (>60) Est GFR (Non-Af Amer) 66.7 (>60) BUN/Creatinine Ratio 18.8 (8-20) Glucose 82 (70-100) mg/dL Lactic Acid (0.5-2.0) mmol/L Calcium 9.4 (8.6-10.3) mg/dL Total Bilirubin 0.60 (0.2-1.0) mg/dL AST 19 (13-39) U/L ALT 18 (7-52) U/L Alkaline Phosphatase 77 (34-104) U/L Total Creatine Kinase 46 (10-223) U/L CK-MB (CK-2) 1.8 (0.6-6.3) ng/mL Myoglobin 19.9 (14.3-65.8) ng/mL Troponin I 0.01 (<0.04) ng/mL B-Natriuretic Peptide 45 (<=100) pg/mL Total Protein 7.2 (6.4-8.9) g/dL Albumin 4.1 (3.2-5.2) g/dL Globulin 3.1 (2-4) g/dL Albumin/Globulin Ratio 1.3 (1-3) TSH Pending 07/19/19 Range/Units 09:12 WBC (3.5-10.8) 10^3/uL RBC (3.70-4.87) 10^6 /uL Hgb (12.0-16.0) g/dL Hct (35-47) % MCV (80-97) fL MCH (27-31) pg MCHC (31-36) g/dL RDW (10-15) % Plt Count (150-450) 10^3/uL MPV (7.4-10.4) fL Neut % (Auto) % Lymph % (Auto) % [place] % (Auto) % Eos % (Auto) % Baso % (Auto) % Absolute Neuts (auto) (1.5-7.7) 10^3/ul Absolute Lymphs (auto) (1.0-4.8) 10^3/ul Absolute Monos (auto) (0-0.8) 10^3/ul Absolute Eos (auto) (0-0.6) 10^3/ul Absolute Basos (auto) (0-0.2) 10^3/ul Absolute Nucleated RBC 10^3/ul Nucleated RBC % Sodium (135-145) mmol/L Potassium (3.5-5.0) mmol/L Chloride (101-111) mmol/L Carbon Dioxide (22-32) mmol/L Anion Gap (2-11) mmol/L BUN (6-24) mg/dL Creatinine (0.51-0.95) mg/dL Est GFR ( Amer) (>60) Est GFR (Non-Af Amer) (>60) BUN/Creatinine Ratio (8-20) Glucose (70-100) mg/dL Lactic Acid 0.8 (0.5-2.0) mmol/L Calcium (8.6-10.3) mg/dL Total Bilirubin (0.2-1.0) mg/dL AST (13-39) U/L ALT (7-52) U/L Alkaline Phosphatase (34-104) U/L Total Creatine Kinase (10-223) U/L CK-MB (CK-2) (0.6-6.3) ng/mL Myoglobin (14.3-65.8) ng/mL Troponin I (<0.04) ng/mL B-Natriuretic Peptide (<=100) pg/mL Total Protein (6.4-8.9) g/dL Albumin (3.2-5.2) g/dL Globulin (2-4) g/dL Albumin/Globulin Ratio (1-3) TSH Assess/Plan/Problems-Billing Assessment: 69yof PMHx IBS diet controlled, b/l cataracts, mild KILO not requiring a CPAP presents with exertional CP, found to have a high risk stress test. - Patient Problems (1) Chest pain Comment: -Exertional CP since 07/02 which has increased in intensity since that time -EKG with ST depression in V3-V6 -Troponin negative x3 -ECHO: EF 55-60%, Grade I diastolic dysfunction; normal wall motion, possible subtle hypokinesis apical inferior/inferoseptal -Stress test: mod to large ant septal photopenia with reversible changes in LAD branch distribution; High Risk -Plan for heart cath today -Continue ASA 81 daily -Nitro SL PRN (2) Hyperlipidemia Comment: -LD 163 -Started on atorvastatin (3) GERD (gastroesophageal reflux disease) Comment: -Continue pantoprazole (4) IBS (irritable bowel syndrome) Comment: -Diet controlled; continue supportive care (5) DVT prophylaxis Comment: -Continue Lovenox (6) Full code status Status and Disposition: Observation. Discharge when medically stable.
--- NOTE | 2019-07-20 11:56 | ECHO ---
*[facility]* [place] [address] Fax #: [phone] Transthoracic Echocardiogram (Report amended [id number]) Patient: Cheyenne Gill : 1950 Study Date: 07/20/2019 Age: 69 Gender: F HR: 62 bpm Height: 66 in /167.6 cm BSA: 1.8 m^2 Weight: 156.7 lb /71.2 kg BMI: 25.3 kg/m^2 *Cv Tech: * Luana Eisenberg RD *Referring Physician: * Sally Hawkins *Reading Physician: * Sean Munoz MD Indications: Chest Pain, unspecified. History: Risk factors: Dyslipidemia. Conclusions Summary: - Left ventricle: The cavity size is at the lower limits of normal. Wall thickness is mildly increased. Systolic function is normal by visual assessment. The estimated ejection fraction is 55-60%. Overall normal wall motion. Possible subtle Hypokinesis of the apical inferior and inferoseptal myocardium. Doppler parameters are consistent with abnormal left ventricular relaxation (grade 1 diastolic dysfunction). - Mitral valve: There is trace to mild regurgitation. - Tricuspid valve: There is mild regurgitation. Study data: Transthoracic echocardiogram. Procedure: Transthoracic echocardiography was performed. Image quality was fair. Complete 2D, spectral Doppler, and color flow Doppler. Location: Bedside. Patient status: Inpatient. Patient room number: 442-1. No prior study is available for comparison. Rhythm: Normal sinus rhythm. Findings Left ventricle: The cavity size is at the lower limits of normal. Wall thickness is mildly increased. Systolic function is normal by visual assessment. The estimated ejection fraction is 55-60%. Regional wall motion abnormalities: Overall normal wall motion. Possible subtle Hypokinesis of the apical inferior and inferoseptal myocardium. Doppler parameters are consistent with abnormal left ventricular relaxation (grade 1 diastolic dysfunction). Right ventricle: The cavity size is normal. Systolic function is normal. Systolic pressure is within the normal range. Left atrium: The atrium is normal in size. Right atrium: The atrium is normal in size. Mitral valve: The leaflets are mildly thickened. There is no evidence of stenosis. There is trace to mild regurgitation. Aortic valve: The valve is trileaflet. The leaflets are mildly thickened. There is no evidence of stenosis. There is no significant regurgitation. Tricuspid valve: The leaflets are normal thickness. There is no evidence of stenosis. There is mild regurgitation. Pulmonic valve: The leaflets are normal thickness. There is no evidence of stenosis. There is trace regurgitation. Aorta: Ascending aorta: The ascending aorta is appears normal. The aortic root appears normal. The aortic arch appears normal. Pericardium: A prominent pericardial fat pad is present. There is no significant pericardial effusion. Pulmonary arteries: The main pulmonary artery is normal-sized. Systolic pressure is within the normal range. Systemic veins: Inferior vena cava: The vessel is normal in size. There is (>= 50%) respiratory change in the IVC dimension. Measurements Left ventricle Value Ref Aortic valve Value Ref TAMIE, LAX (L) 3.6 cm 3.8 - 5.2 Sravanthi diam, ED 1.8 cm ----- ESD, LAX 2.3 cm 2.2 - 3.5 Peak v, S 1.17 m/sec ----- FS, LAX 36 % 27 - 45 VTI, S 26.2 cm ----- PW, ED, LAX (H) 1.1 cm 0.6 - 0.9 Mean grad, S 3.0 mm Hg ----- FS 36 % 27 - 45 Peak grad, S 5.0 mm Hg ----- PW, ED (H) 1.1 cm 0.6 - 0.9 LVOT/AV, VTI ratio 0.95 ----- E', lat sravanthi, TDI (L) 7.1 cm/sec >=10.0 E/e', lat sravanthi, 10 Mitral valve Value Ref TDI Peak E 0.74 m/sec ----- E', med sravanthi, TDI (L) 6.3 cm/sec >=7.0 Peak A 0.87 m/sec --- -- E/e', med sarvanthi, 12 Decel time 292 ms ----- TDI Peak grad, D 2.2 mm Hg ----- E', avg, TDI 6.7 cm/sec Peak E/A ratio 0.9 ----- E/e', avg, TDI 11 <=14 Pulmonic valve Value Ref LVOT Value Ref Peak v, S 0.81 m/sec ----- Peak damon, S 1.09 m/sec Peak grad, S 3.0 mm Hg ----- VTI, S 25.0 cm Mean grad, S 2 mm Hg Tricuspid valve Value Ref TR peak v 2.3 m/sec <=2.8 Ventricular septum Value Ref Peak RV-RA grad, S 21 mm Hg ----- IVS, ED (H) 1.2 cm 0.6 - 0.9 Aortic root Value Ref Right ventricle Value Ref Root diam 2.8 cm <4.0 TAMIE, LAX 3.3 cm TAMIE minor ax, A4C (H) 3.6 cm 1.9 - 3.5 Ascending aorta Value Ref mid AAo AP diam, S 3.2 cm ----- Pressure, S 24 mm Hg Aortic arch Value Ref Left atrium Value Ref Arch diam 2.0 cm ----- AP dim, ES 3.30 cm 2.70 - 3.80 Decending aorta Value Ref ML dim, A4C 4.2 cm Huyen peak damon 0.67 m/sec ----- SI dim, A4C 5.2 cm Vol/bsa, ES, 1-p 26 ml/m^2 11 - 40 Pulmonary artery Value Ref A4C Pressure, S 21.0 mm Hg ----- Vol/bsa, ES, A/L 27 ml/m^2 16 - 34 Inferior vena cava Value Ref Right atrium Value Ref Diam 1.6 cm ----- SI dim, ES 4.9 cm 3.4 - 5.3 ML dim, ES, A4C 3.5 cm 2.6 - 4.4 SI dim, ES, A4C 4.9 cm 3.4 - 5.3 Estimated RAP 3 mm Hg Legend: (L) and (H) chance values outside specified reference range. Amended Sean Munoz MD 07/20/2019 11:56
[2019-07-20] MEDS ORDERED: Aspirin EC TAB* 81 MG TAB.EC PO ONE (12:15)
--- NOTE | 2019-07-20 12:51 | CONS ---
CC: Dr. Matthew Menchaca* CONSULTATION REPORT: DATE OF CONSULT: 07/20/19. ATTENDING PHYSICIAN: Dr. Matthew Menchaca, Cardiology* (dictated by Clarissa Melo NP). REASON FOR CONSULTATION: Complaints of chest pain with abnormal stress test. PRIMARY PHYSICIAN: Dr. Benítez. 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 The patient states that for the past 2 weeks, episodes of substernal chest pressure has been increasing in frequency and intensity and now occurring in the setting of rest. Apparently, on 07/03/19, she presented to [facility] Emergency Department due to waking up overnight with substernal chest pain upon review of medical records. The patient was discharged home and was supposed to follow up with her PCP for possible risk stratification. Her troponin at that time was normal. The patient states she follows up with her primary physician earlier this week due to recurrent chest pain. The primary physician ordered cardiac enzymes, troponin was minimally elevated. Thus, she instructed the patient to present to [facility] on 07/19/19. The patient states her last episode of chest pain was yesterday. The patient was admitted for chest pain, rule out ACS. Isoenzymes this admission have been normal, although again outpatient blood work from 07/18/19 ordered by PCP, Dr. Benítez, showed troponinemia. ECG was obtained which shows T-wave abnormality in V1 through V3. The patient was risk stratified with exercise nuclear stress test. I personally spoke to Dr. Matthew Menchaca today on the phone, who states that the patient has reproduction of presenting symptomatology with anterior ischemia noted on MPI. The patient is currently asymptomatic. The patient asks that she has also been noticing intermittent palpitations with lightheadedness and near syncope. These episodes occur independently of chest pain. She is not able to tell me when the last episode was. She denies syncope , however. PAST MEDICAL HISTORY: 1. Typhoid fever as young child. 2. Melanoma. PAST SURGICAL HISTORY: 1. In 2017, she had extraction of melanoma on her left forearm. 2. Polyp removal in 2017. HOME MEDICATIONS: None. ALLERGIES: List includes PENICILLIN which causes hives, MERCURY, unknown reaction. Denies allergy to contrast dye or shellfish. FAMILY HISTORY: Noncontributory. SOCIAL HISTORY: The patient is . Lives at home with her . 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 She drinks 2 to 4 glasses of Prosecco or wine a week. Denies illegal drug use. Denies tobacco abuse. She lives an active lifestyle. She actually works with a administrative personal assistant 2 times a week doing weightlifting and aerobic exercise. REVIEW OF SYSTEMS: All systems have been reviewed and otherwise is negative except as above mentioned in the HPI. PHYSICAL EXAM: Temperature 98, pulse 63, respirations 18, oxygenation 97% on room air, blood pressure 114/76. General: The patient was lying in bed upon entering the room. Appears in no apparent distress. Offers no complaints at this time. HEENT: Head is atraumatic, normocephalic. Oral mucosa is moist. Tongue is midline. Neck: Supple. Trachea midline. No JVD. No carotid bruits. Cardiac: Normal S1, S2. Regular rate and rhythm. No murmur, rub, or gallop noted. Lungs: Auscultated posteriorly. No evidence of adventitious breath sounds. /GI: Abdomen is soft, nontender, nondistended. Normoactive bowel sounds x4. No hepatomegaly to palpation. Peripheral vascular: Strong brachial pulse palpated bilaterally and symmetrically. Strong femoral pulse with no palpable thrill palpated. Skin: Intact. No evidence of jaundice, rash , ecchymosis appreciated. DIAGNOSTIC STUDIES/LAB DATA: Blood work reviewed. White count was 4.8, hemoglobin 14.2, hematocrit 42, platelets 288. Sodium 140, potassium 3.7, chloride 106, carbon dioxide 28. Creatinine 0.85. Troponin negative this admission. INR pending. Exercise stress test report was reviewed. The patient exercised for 5 minutes and 44 seconds achieving 7 METs. She achieved 92% of maximum predicted heart rate. The patient had reproduction of chest pain that got mildly better at peak exercise. ECG portion was intermediate risk. Per Dr. Menchaca, nuclear medicine report showed reversible anterior ischemia. ASSESSMENT AND PLAN: 1. Unstable angina with abnormal exercise nuclear stress test. The patient has had progressive substernal chest discomfort, now occurring at rest with troponinemia on 07/18/19. She had reproduction of chest pain with exercise during today's exercise nuclear stress test. Myocardial perfusion imaging report per Dr. Menchaca showed reversible anterior ischemia. We will order LDL, INR. The patient is on high-intensity statin therapy and aspirin therapy which we recommend continuing. We will readdress beta-carlita therapy after cardiac catheterization at this current time. We recommend a left heart catheterization. I personally reviewed the indications with procedure risk and benefits that include but are not limited to, bleeding, infection, vessel damage , risk of contrast-induced nephropathy, possibility of requiring dual antiplatelet therapy, possible referral for bypass surgery. The patient is agreeable to proceed with the procedure. She denies any history of bleeding complications, denies allergy to contrast dye. Consent to be obtained by hand molder and caster, Dr. Matthew Menchaca. Echocardiogram is currently pending. We will follow closely. 2. Presumed newly diagnosed coronary artery disease, on aspirin and statin therapy. We will address beta-carlita therapy post cardiac catheterization and echocardiogram. 3. History of gastroesophageal reflux disease. We will recommend continuing PPI therapy. 4. DVT prophylaxis. On Lovenox therapy. 5. Disposition: Pending course. The patient full code. We will plan for left heart catheterization with Dr. Matthew Menchaca, await echocardiogram and follow closely. Please keep patient n.p.o. Nurse was updated with plan of care. Thank you for this kind consultation. Any future questions or concerns, please do not hesitate to contact our practice. CLARISSA MELO NP I personally interviewed and examined the patient and I have reviewed and agree with the above plan. Given the reproduction of her symptoms with significant anterior wall ischemia on nuclear imaging , clearly she has a high likelihood of significant CAD ( probably to LAD territory) as a cause of her ACS. Further management pending results of the catheterization. Matthew Menchaca MD, [facility] [place] [id number] #: [id number] MTDD
[2019-07-20] MEDS ORDERED: Diazepam TAB(*) 5 MG ONE (13:33)
[2019-07-20] MEDS ORDERED: diPHENhydraMINE PO* 25 MG ONE (13:34)
[2019-07-20] MEDS ORDERED: Lidocaine 1% INJ* 10 MG/ML 30 ML SDV ONE ×2 (13:57→14:04)
[2019-07-20] MEDS ORDERED: Iohexol 350 (CONTRAST) 200 ML MDV IV ONE ×2 (13:58→14:04)
[2019-07-20] MEDS ORDERED: fentaNYL* 50 MCG/ML 2 ML VIAL (100 MCG VIAL) ONE (14:02)
[2019-07-20] MEDS ORDERED: Midazolam* 1 MG/ML 5 ML VIAL (5 MG) ONE (14:03)
[2019-07-20] MEDS ORDERED: VERAPAMIL 2.5 MG/ML 2 ML VIAL ** 5 mg/2 ml ONE (14:03)
[2019-07-20] MEDS ORDERED: nitroGLYCERIN DRIP* 25,000 MCG/250 ML BTL ONE (14:03)
[2019-07-20] MEDS ORDERED: Heparin 2 UNITS/ML IVPREMIX* 3,000 UNIT/1,500 ML BAG IV ONE (14:03)
[2019-07-20] MEDS ORDERED: Heparin(*) 1000 UNIT/ML 10 ML VIAL CATH LAB IV ONE (14:03)
[2019-07-20] MEDS ORDERED: Ticagrelor* 90 MG TAB PO ONE (14:30)
[2019-07-20] MEDS ORDERED: Nitroglycerin TAB 0.4 MG* 0.4 MG TAB SL PRN (15:23)
--- NOTE | 2019-07-20 16:52 | CATH ---
CC: Dr. Dior Benítez CARDIAC CATHETERIZATION AND AN INTERVENTIONAL REPORT: DATE OF PROCEDURE: 07/20/19 INDICATION FOR PROCEDURE: The patient presents with symptoms suggestive of acute coronary syndrome with abnormal exercise nuclear stress test positive for symptoms as well as nuclear study demonstrating mid to distal and apical anterior wall reversible ischemia, now for cardiac catheterization to rule out the presence of critical mid LAD disease. PROCEDURE: Coronary arteriography, left heart catheterization, primary stenting of the mid LAD with a 4.0 x 12 mm long Synergy drug-eluting stent, postdilated to 4.2 mm. CONSENT: The patient was interviewed and examined in the holding area of the cardiovascular laboratory where the risks and benefits were explained. She understood them and wished to proceed. PRE-CARDIAC CATHETERIZATION LABORATORY RESULTS: Hemoglobin and hematocrit of 14.2 and 42 with a platelet count of 228,000. BUN and creatinine of 16 and 0.85. Sodium 140, potassium 3.7, chloride 106, bicarb 28. Troponin 0.01. APPROACH UTILIZED: The right radial artery was assessed under ultrasound and found to be acceptable for an approach, and as such, this was the approach utilized. EQUIPMENT UTILIZED: 1. Right radial artery sheath, a 6-[place] Glidesheath Slender. 2. Diagnostic coronary catheter, a 5-[place] TIG4 curved catheter. 3. Left heart catheterization, catheter for pressures, a 5-[place] pigtail short radial catheter. 4. A guide catheter for intervention. A Heartrail III 6-[place] 3.5 curved guide catheter. 5. The diagnostic guidewire was a Cook Andrade curved guidewire 260 length. The interventional wire was a 190 cm length BMW wire. 6. The stent utilized was a 4.0 x 12 mm long Synergy drug-eluting stent. 7. Post stent deployment balloon catheter was a IdenIve Emerge 4.0 X 8 mm long balloon. 8. The closure device utilized was a Vasc Band regular size by [employer]. MEDICATIONS GIVEN: Included radial artery cocktail of 3000 units of heparin, 300 mcg of nitroglycerin, and 3 mg of verapamil. Additional heparin of 2500 units was given at the time to perform the interventional procedure. Brilinta 180 mg crushed was given to the patient. She had already received aspirin therapy prior to coming to the cardiovascular laboratory. 1% lidocaine was used locally, and in the laboratory, 0.5 mg of Versed and 12.5 mcg fentanyl was given. DESCRIPTION OF PROCEDURE: The patient was brought to the cardiovascular laboratory where a formal time-out was performed. She was prepped and draped in a sterile fashion, and under ultrasound guidance, the right radial artery was cannulated and the sheath was placed. Diagnostic coronary arteriography was performed. Following that, the decision was made to intervene into the mid left anterior descending artery 90% lesion. ACT was checked and found to be subtherapeutic. Additional heparin therapy was given. ACT was rechecked and was found to be in a therapeutic range. Guiding views were obtained and primary stenting was performed. Post stent deployment, balloon inflations to as high as 21 to 22 atmospheres was performed. Following this, the artery was assessed in multiple views. At the end of the case, the catheter was exchanged for a pigtail catheter where central aortic pressure and left ventricular pressure was recorded. Of note, the patient already had an echocardiogram done today, and as such, left ventriculogram was deferred. At the end of the case, the catheter and sheath were removed and hemostasis was obtained with a Vasc Band. The total contrast used was 110 cc of Omnipaque dye. The radiation exposure included 10.5 minutes of fluoro time. The air kerma radiation was 1077 milligray. The DAP radiation was 5728 microgray/m2. RESULTS: HEMODYNAMIC DATA: Central aortic pressure was recorded at 117/65 with a mean of 87, left ventricular pressure was recorded at 125 over left ventricular end diastolic pressure of 14. CORONARY ARTERIOGRAPHY: A. Right coronary artery - a dominant vessel supplying the PDA and 2 posterior left ventricular branches. There was mild luminal irregularities in the proximal portion of approximately 10% to 15%. The rest of the artery had no significant obstruction seen B. Left coronary artery - 1. Left main - widely patent with a 10% to 15% narrowing seen in the distal portion of it. 2. Left anterior descending artery - the left anterior descending artery supplied a first diagonal branch followed by a first septal oriental medicine practitioner. Just after that, there was a critical 90% blockage seen in the left anterior descending artery. There was post stenotic dilatation noted to that portion of the vessel compared to the more proximal portion. The rest of the vessel had no significant disease and traversed to the apical region and onto the distal inferior wall. 3. Circumflex artery - a nondominant vessel supplying a small trifurcation marginal branch followed by multiple, somewhat small caliber obtuse marginal branches ending a low-lying bifurcating moderate size posterior left ventricular branch. There were no significant stenoses seen throughout the course of the vessel. INTERVENTION INTO CRITICAL MID LEFT ANTERIOR DESCENDING LESION: Successful reduction of critical 90% stenosis utilizing primary stenting with a 4.0 x 12 mm long Synergy drug-eluting stent, post dilated to 4.2 mm with high pressure balloon inflation with approximately 10% residual stenosis at most noted, IESHA 3 flow and no dissection seen. OVERALL ASSESSMENT: Critical single vessel disease which correlated exquisitely with the nuclear imaging as well as the patient's unstable symptoms with unstable angina, [place] classification IV, with discomfort at rest. Successful intervention with drug-eluting stent. Dual-antiplatelet therapy is crucial over the course of the next ideally 1-year time period unless intolerance develops for which it could be considered to be perhaps stopped sooner at 6 months if the risk of bleeding outweighs the risk of her cardiac status. High-dose statin therapy will be pursued as well. She has never smoked, so we do not have to deal with smoking cessation. We will set up a followup wound check for her next week and then establish her with one of our noninterventional cardiologists for ongoing cardiac care. [id number] #: [id number] ANA
[2019-07-20] MEDS ORDERED: Atorvastatin* 80 MG TAB PO SCH (17:00)
[2019-07-20] MEDS: Ticagrelor* 90 MG TAB PO SCH (20:41)
[2019-07-21 03:53] LABS: Hematocrit 39 % (35-47); Mean Corpuscular HGB Conc 34 g/dL (31-36); Mean Corpuscular Hemoglobin 30 pg (27-31); Mean Corpuscular Volume 90 fL (80-97); Mean Platelet Volume 8.1 fL (7.4-10.4); Platelet Count 221 10^3/uL (150-450); Red Blood Count 4.31 10^6 /uL (3.70-4.87); Red Cell Distribution Width 14 % (10-15); White Blood Count 6.1 10^3/uL (3.5-10.8)
[2019-07-21 04:03] LABS: ABS Basophils 0.1 10^3/ul (0-0.2); ABS Eosinophils 0.1 10^3/ul (0-0.6); ABS Lymphocytes 2.1 10^3/ul (1.0-4.8); ABS Monocytes 0.7 10^3/ul (0-0.8); ABS Neutrophils 3.4 10^3/ul (1.5-7.7); Eosinophil % 1.3 %; Lymphocyte % 33.6 %
[2019-07-21 04:10] LABS: Albumin 3.7 g/dL (3.2-5.2); Albumin/Globulin Ratio 1.3 (1-3); Calcium 9.1 mg/dL (8.6-10.3); EGFR African American 86.6 (>60); EGFR Non-African American 71.5 (>60); Globulin 2.8 g/dL (2-4); HDL Cholesterol 38.6 mg/dL; Potassium 4.1 mmol/L (3.5-5.0); Total Bilirubin 0.4 mg/dL (0.2-1.0); Total Protein 6.5 g/dL (6.4-8.9)
[2019-07-21] MEDS: Aspirin EC TAB* 81 MG TAB.EC PO SCH (07:59)
[2019-07-21] MEDS: Pantoprazole TAB * 40 MG TAB PO SCH (07:59)
[2019-07-21] MEDS: Ticagrelor* 90 MG TAB PO SCH (07:59)
[2019-07-21 11:09] VITALS: BP 113/76
--- NOTE | 2019-07-22 12:27 | DS ---
CC: Dr. Benítez; Dr. Laguerre DISCHARGE SUMMARY: DATE OF ADMISSION: 07/19/19 DATE OF DISCHARGE: 07/21/19 PRIMARY DIAGNOSIS: Crescendo angina with left anterior descending culprit lesion, status post stenti ng. SECONDARY DIAGNOSES: 1. Coronary artery disease. 2. Irritable bowel syndrome. 3. Obstructive sleep apnea, mild. 4. History of melanoma. 5. Bilateral cataracts. 6. Hyperlipidemia. 7. Gastroesophageal reflux disease. MEDICATIONS ON DISCHARGE: 1. Aspirin 81 mg p.o. q. day. 2. Brilinta 90 mg p.o. b.i.d. 3. Omeprazole 20 mg p.o. q. day. 4. Atorvastatin 80 mg p.o. q.p.m. 5. Nitroglycerin 0.4 mg sublingual q.5 minutes x3 p.r.n. chest pain. CONSULTATIONS: Dr. Menchaca, Cardiology. PROCEDURES: On 07/20/19, the patient underwent cardiac catheterization, left heart cath, stenting of the mid LAD lesion with a drug-eluting stent through the radial artery approach. HOSPITAL COURSE: A 69-year-old woman presented with chest pain that had been occurring with exertion mainly over a period of 2 weeks. She had an outpatient troponin test on 07/18/19 that showed 0.04, but the troponin taken as inpatient was 0.01 and 0.00. The physicians had a high index of suspicion of exertional angina given new T-wave inversions on EKG and the mild troponinemia. The patient under went an exercise nuclear stress test on 07/20/19 that showed a moderate-to- large anterior to the sep dot wall photopenia with reverse changes in the LAD distribution. Interestingly, she did not have si gnificant EKG changes on the treadmill portion of the test. Cardiac catheterization was performed by Dr. Menchaca as above and the patient on the day of discharge was free of chest pain. She had no comp lications from the arterial access. During the hospital stay, she had blood tests including normal e lectrolytes, hemoglobin A1c at 5.5, lactic acid 0.8, BNP 45, cholesterol 200, LDL 144, TSH 1.65, the patient was started on statin to the lower LDL by more than 50% and started on aspirin and Brilinta t o prevent stent thrombosis. DISPOSITION: To home. STATUS: Observation. ACTIVITY: As tolerated. She should have cardiac rehab set up in a few weeks. FOLLOWUP: Plan is to see Dr. Benítez within [address] Laguerre within 2 weeks. DIET: Low fat and low salt. [id number]/[facility] #: [id number]
--- NOTE | 2019-07-30 08:59 | DS ---
ADDENDUM: DATE OF ADMISSION: DATE OF DISCHARGE: 07/21/19 CONDITION: Stable. [id number]/[facility] #: [id number] MTDD
== END 2019-07-21 12:30 | disposition home or self-care (01) ==
LOC: ED 08:46 → MEDTELE 12:14 → ICU 07-20 15:43
PROVIDERS: ADMIT Internal Medicine; ATTEND Internal Medicine
DX: I20.0 Unstable angina (principal); I25.10 Atherosclerotic heart disease of native coronary artery without angina pectoris; K58.9 Irritable bowel syndrome, unspecified; G47.33 Obstructive sleep apnea (adult) (pediatric); Z85.820 Personal history of malignant melanoma of skin; H26.9 Unspecified cataract; E78.5 Hyperlipidemia, unspecified; K21.9 Gastro-esophageal reflux disease without esophagitis; Z79.899 Other long term (current) drug therapy; Z79.82 Long term (current) use of aspirin; R07.9 Chest pain, unspecified; R94.31 Abnormal electrocardiogram [ECG] [EKG]
CPT/HCPCS: 36415; 71045; 76937; 78452; 80053; 80061; 82550; 82553; 83036; 83605; 83874; 83880; 84443; 84484; 85025; 85347; 85610; 87641; 93005; 93017; 93306; 93458; 96372; 99284; A9270-GY; A9502; C1725; C1769; C1876; C9600-LD; G0378; J1644; J1650; J2250; J3010

== ENCOUNTER 2019-07-22 23:17 | Emergency (ER) | payer BC ==
[2019-07-23] MEDS ORDERED: NS 0.9% 1000 ML** 1,000 ML IV ONE ×2 (00:09→02:11)
[2019-07-23 00:41] LABS: ABS Eosinophils 0.1 10^3/ul (0-0.6); ABS Lymphocytes 2.3 10^3/ul (1.0-4.8); ABS Monocytes 0.7 10^3/ul (0-0.8); ABS Neutrophils 4.1 10^3/ul (1.5-7.7); Eosinophil % 1.1 %; Hematocrit 41 % (35-47); Hemoglobin 13.7 g/dL (12.0-16.0); Lymphocyte % 31.6 %; Mean Corpuscular HGB Conc 34 g/dL (31-36); Mean Corpuscular Hemoglobin 30 pg (27-31); Mean Corpuscular Volume 89 fL (80-97); Nucleated Red Blood Cells % 0.1; Platelet Count 242 10^3/uL (150-450); Red Blood Count 4.54 10^6 /uL (3.70-4.87); Red Cell Distribution Width 14 % (10-15); White Blood Count 7.2 10^3/uL (3.5-10.8)
[2019-07-23 00:53] LABS: INR 1.02 (0.82-1.09)
[2019-07-23 00:54] LABS: ALT 37 U/L (7-52); AST 46 U/L (13-39); Albumin/Globulin Ratio 1.3 (1-3); Alkaline Phosphatase 80 U/L (34-104); Anion Gap 4 mmol/L (2-11); BUN/Creatinine Ratio 16.1 (8-20); Blood Urea Nitrogen 14 mg/dL (6-24); C Reactive Protein 5.11 mg/L (<8.01); CO2 Carbon Dioxide 27 mmol/L (22-32); Calcium 8.8 mg/dL (8.6-10.3); Chloride 105 mmol/L (101-111); EGFR African American 78.6 (>60); EGFR Non-African American 64.9 (>60); Globulin 3.2 g/dL (2-4); Glucose 103 mg/dL (70-100); Magnesium 1.9 mg/dL (1.9-2.7); Sodium 136 mmol/L (135-145); Total Protein 7.2 g/dL (6.4-8.9)
[2019-07-23 00:58] LABS: Troponin I 0.04 ng/mL (<0.04)
--- NOTE | 2019-07-23 01:30 | ED ---
Complex/Multi-Sys Presentation - HPI Summary HPI Summary: Patient with history of cardiac stent [place] [facility] [place] , presents tonight complaining of headache, lightheadedness, intermittent mild nausea, 4 episodes of diarrhea, weakness, chills starting this evening. Denies CP, SOB, room spinning, imbalance, altered mental status, loss speech deficits, facial droop, unilateral deficits, fever, cough, sore throat, neck stiffness, V/D abdominal pain, change in urine, vaginal symptoms. Medical history is CAD. Patient started on brilinta and atorvastatin yesterday. - History Of Current Complaint Chief Complaint: EDDizziness Time Seen by Provider: 07/23/19 00:07 Hx Obtained From: Patient Onset/Duration: Sudden Onset, Lasting Hours Timing: Intermittent, Lasting: Severity Currently: Mild Associated Signs And Symptoms: Positive: Weakness, Headache, Nausea, Diarrhea - Allergies/Home Medications Allergies/Adverse Reactions: Allergies Allergy/AdvReac Type Severity Reaction Status Date / Time mercury (elemental) Allergy Unknown Verified 07/22/19 23:21 Reaction Details Penicillins Allergy Hives Verified 07/22/19 23:21 PMH/Surg Hx/FS Hx/Imm Hx Endocrine/Hematology History: Reports: Hx Anticoagulant Therapy Denies: Hx Diabetes Cardiovascular History: Reports: Hx Angina, Hx Hypercholesterolemia GI History: Reports: Hx Irritable Bowel - CONTROLLED WITH DIET, SYMPTOMS HAVE RESOLVED History: Denies: Hx Dialysis Musculoskeletal History: Reports: Hx Tendonitis - HEALED WITH RESTING Sensory History: Reports: Hx Cataracts - BEGINNING STAGE BI-LAT, Hx Contacts or Glasses - WEARS GLASSES Denies: Hx Hearing Aid Opthamlomology History: Reports: Hx Cataracts - BEGINNING STAGE BI-LAT, Hx Contacts or Glasses - WEARS GLASSES EENT History: Denies: Hx Deafness Neurological History: Denies: Hx Developmental Delay Psychiatric History: Reports: Hx Anxiety - WHEN PT WAS 37 YRS OLD, BUT NOT SINCE THEN - Cancer History Cancer Type, Location and Year: melanoma Hx Chemotherapy: No Hx Radiation Therapy: No - Surgical History Surgery Procedure, Year, and Place: COLONOSCOPY ONLY. melanoma removal Hx Anesthesia Reactions: No - PT HAS NEVER HAD SURGERY Infectious Disease History: No Infectious Disease History: Denies: Traveled Outside the [place] in Last 30 Days - Family History Known Family History: Negative: Diabetes Family History: family history of angia pectoris in her father and breast cancer in her maternal grandmother. - Social History Alcohol Use: None Alcohol Amount: 3 GLASSES OF WINE AT MOST Hx Substance Use: No Substance Use Type: Reports: None Hx Tobacco Use: No Smoking Status (MU): Never Smoked Tobacco Review of Systems Positive: Chills Eyes: Negative ENT: Negative Cardiovascular: Negative Respiratory: Negative Positive: Nausea Genitourinary: Negative Musculoskeletal: Negative Skin: Negative Positive: Headache Psychological: Normal All Other Systems Reviewed And Are Negative: Yes Physical Exam - Summary Physical Exam Summary: Neuro exam normal. Normal gait. Abdomen soft nontender. Lung sounds clear to auscultation bilaterally. RRR. Triage Information Reviewed: Yes Vital Signs On Initial Exam: Initial Vitals Temp Pulse Resp BP Pulse Ox 98 F 84 15 126/80 97 07/22/19 23:19 07/22/19 23:19 07/22/19 23:19 07/22/19 23:19 07/22/19 23:19 Vital Signs Reviewed: Yes Appearance: Positive: Well-Appearing Skin: Positive: Warm Head/Face: Positive: Normal Head/Face Inspection Eyes: Positive: Normal Neck: Positive: Supple Respiratory/Lung Sounds: Positive: Clear to Auscultation Cardiovascular: Positive: Normal Abdomen Description: Positive: Nontender Musculoskeletal: Positive: Normal Neurological: Positive: Normal Psychiatric: Positive: Normal AVPU Assessment: Alert - [place] Coma Scale Best Eye Response: 4 - Spontaneous Best Motor Response: 6 - Obeys Commands Best Verbal Response: 5 - Oriented Coma Scale Total: 15 Diagnostics - Vital Signs Vital Signs Temp Pulse Resp BP Pulse Ox 07/23/19 01:00 16 07/23/19 00:50 11 111/75 07/23/19 00:20 75 18 140/84 97 07/22/19 23:19 98 F 84 15 126/80 97 - Laboratory Lab Results: Lab Results 07/23/19 07/23/19 07/23/19 Range/Units 00:29 00:29 00:30 WBC 7.2 (3.5-10.8) 10^3/uL RBC 4.54 (3.70-4.87) 10^6 /uL Hgb 13.7 (12.0-16.0) g/dL Hct 41 (35-47) % MCV 89 (80-97) fL MCH 30 (27-31) pg MCHC 34 (31-36) g/dL RDW 14 (10-15) % Plt Count 242 (150-450) 10^3/uL MPV 8.0 (7.4-10.4) fL Neut % (Auto) 56.8 % Lymph % (Auto) 31.6 % [place] % (Auto) 10.0 % Eos % (Auto) 1.1 % Baso % (Auto) 0.5 % Absolute Neuts (auto) 4.1 (1.5-7.7) 10^3/ul Absolute Lymphs (auto) 2.3 (1.0-4.8) 10^3/ul Absolute Monos (auto) 0.7 (0-0.8) 10^3/ul Absolute Eos (auto) 0.1 (0-0.6) 10^3/ul Absolute Basos (auto) 0.0 (0-0.2) 10^3/ul Absolute Nucleated RBC 0.0 10^3/ul Nucleated RBC % 0.1 INR (Anticoag Therapy) 1.02 (0.82-1.09) Sodium 136 (135-145) mmol/L Potassium 4.0 (3.5-5.0) mmol/L Chloride 105 (101-111) mmol/L Carbon Dioxide 27 (22-32) mmol/L Anion Gap 4 (2-11) mmol/L BUN 14 (6-24) mg/dL Creatinine 0.87 (0.51-0.95) mg/dL Est GFR ( Amer) 78.6 (>60) Est GFR (Non-Af Amer) 64.9 (>60) BUN/Creatinine Ratio 16.1 (8-20) Glucose 103 H (70-100) mg/dL Lactic Acid (0.5-2.0) mmol/L Calcium 8.8 (8.6-10.3) mg/dL Magnesium 1.9 (1.9-2.7) mg/dL Total Bilirubin 0.60 (0.2-1.0) mg/dL AST 46 H (13-39) U/L ALT 37 (7-52) U/L Alkaline Phosphatase 80 (34-104) U/L Troponin I 0.04 H* (<0.04) ng/mL C-Reactive Protein 5.11 (<8.01) mg/L Total Protein 7.2 (6.4-8.9) g/dL Albumin 4.0 (3.2-5.2) g/dL Globulin 3.2 (2-4) g/dL Albumin/Globulin Ratio 1.3 (1-3) TSH Pending 07/23/19 Range/Units 00:30 WBC (3.5-10.8) 10^3/uL RBC (3.70-4.87) 10^6 /uL Hgb (12.0-16.0) g/dL Hct (35-47) % MCV (80-97) fL MCH (27-31) pg MCHC (31-36) g/dL RDW (10-15) % Plt Count (150-450) 10^3/uL MPV (7.4-10.4) fL Neut % (Auto) % Lymph % (Auto) % [place] % (Auto) % Eos % (Auto) % Baso % (Auto) % Absolute Neuts (auto) (1.5-7.7) 10^3/ul Absolute Lymphs (auto) (1.0-4.8) 10^3/ul Absolute Monos (auto) (0-0.8) 10^3/ul Absolute Eos (auto) (0-0.6) 10^3/ul Absolute Basos (auto) (0-0.2) 10^3/ul Absolute Nucleated RBC 10^3/ul Nucleated RBC % INR (Anticoag Therapy) (0.82-1.09) Sodium (135-145) mmol/L Potassium (3.5-5.0) mmol/L Chloride (101-111) mmol/L Carbon Dioxide (22-32) mmol/L Anion Gap (2-11) mmol/L BUN (6-24) mg/dL Creatinine (0.51-0.95) mg/dL Est GFR ( Amer) (>60) Est GFR (Non-Af Amer) (>60) BUN/Creatinine Ratio (8-20) Glucose (70-100) mg/dL Lactic Acid 0.5 (0.5-2.0) mmol/L Calcium (8.6-10.3) mg/dL Magnesium (1.9-2.7) mg/dL Total Bilirubin (0.2-1.0) mg/dL AST (13-39) U/L ALT (7-52) U/L Alkaline Phosphatase (34-104) U/L Troponin I (<0.04) ng/mL C-Reactive Protein (<8.01) mg/L Total Protein (6.4-8.9) g/dL Albumin (3.2-5.2) g/dL Globulin (2-4) g/dL Albumin/Globulin Ratio (1-3) TSH Result Diagrams: 07/23/19 00:29 07/23/19 00:29 Lab Statement: Any lab studies that have been ordered have been reviewed, and results considered in the medical decision making process. Complex Multi-Symp Course/Dx Course Of Treatment: Patient with history of cardiac stent [place] [facility] [place]19, presents tonight complaining of headache, lightheadedness, intermittent mild nausea, 4 episodes of diarrhea, weakness, chills starting this evening. Denies CP, SOB, room spinning, imbalance, altered mental status, loss speech deficits, facial droop, unilateral deficits, fever, cough, sore throat, neck stiffness, V/D abdominal pain, change in urine, vaginal symptoms. Medical history is CAD. Patient started on brilinta and atorvastatin yesterday. Vital signs within normal limits. Initial troponin 0.04. Labs otherwise unremarkable. EKG sinus rhythm with normal RI interval, same as prior. 2 L normal saline administered. Patient signed out to Dr. Parker pending second troponin. - Diagnoses Provider Diagnoses: Diarrhea Discharge ED - Sign-Out/Discharge Documenting (check all that apply): Sign-Out Patient Signing out patient TO: Ramos Parker Patient Received Moderate/Deep Sedation with Procedure: No - Discharge Plan Condition: Stable Disposition: HOME Prescriptions: Ondansetron ODT TAB* [Zofran 4 MG Odt TAB*] 4 mg PO Q6H PRN #12 tab.odt PRN Reason: Nausea Patient Education Materials: Acute Diarrhea (ED) Referrals: Dior Benítez MD [Primary Care Provider] - 2 Days (if not improving) Additional Instructions: The tests tonight did not show any indication that your current illness is related to your recent heart procedure. I would recommend rest at home on a bland diet. You can advance your diet as the symptoms resolve. - Billing Disposition and Condition Condition: STABLE Disposition: Home
[2019-07-23 01:39] LABS: TSH (Thyroid Stimulating Horm) 2.72 mcIU/mL (0.34-5.60)
[2019-07-23 02:02] LABS: Urine Appearance Clear; Urine Bilirubin Negative (Negative); Urine Blood Negative (Negative); Urine Color Yellow; Urine Glucose Negative (Negative); Urine Ketones Negative (Negative); Urine Nitrite Negative (Negative); Urine Protein Negative (Negative); Urine Specific Gravity 1.009 (1.010-1.030); Urine Urobilinogen Negative (Negative)
[2019-07-23] MEDS ORDERED: Ondansetron ODT TAB* 4 MG PO ONE (02:38)
[2019-07-23] MEDS ORDERED: Acetaminophen TAB* 325 MG PO ONE (02:38)
[2019-07-23 05:17] VITALS: BP 127/76
== END 2019-07-23 05:17 | disposition home or self-care (01) ==
LOC: ED 23:17
DX: R19.7 Diarrhea, unspecified (principal); R51 Headache; R42 Dizziness and giddiness; R11.0 Nausea; R53.1 Weakness; R68.83 Chills (without fever); E78.00 Pure hypercholesterolemia, unspecified; Z79.01 Long term (current) use of anticoagulants; Z95.5 Presence of coronary angioplasty implant and graft; Z88.0 Allergy status to penicillin
CPT/HCPCS: 36415; 80053; 81003; 83605; 83735; 84443; 84484; 85025; 85610; 86140; 93005; 96360; 96361; 99283

== ENCOUNTER 2019-08-30 08:09 | Emergency (ER) | payer BC ==
--- OUTSIDE RECORDS SUMMARY | 2019-08-30 08:14 | XMS REPORT | Continuity of Care Document ---
:1950 External Reference #:[id number] Author Name Lucy Laguerre MD, [facility], [facility] (transmitted by agent of provider Brigitte Yoder) Address [address] [place] [address] Care Team Providers Name Role Phone Dior Benítez MD - Internal Medicine Care Team Information Security Dispatcher [phone] Problems Description No Information Available Social History Type Date Description Comments Sex Unknown ETOH Use consumes 2-3 glasses of wine per week Tobacco Use Start: Unknown Patient has never smoked Recreational Drug Use Never Used Drugs Smoking Status Reviewed: 07/24/19 Patient has never smoked Exercise Type/Frequency Walks sporadically Allergies, Adverse Reactions, Alerts Active Allergies Reaction Severity Comments Date PCN hives 01/15/2004 Medications Active Medications SIG Qnty Indications Ordering Provider Date Lipitor 1 by mouth Unknown 07/23/2019 80mg Tablets every day Nitroglycerin 1 sl q5mins x3 Matthew Menchaca, 07/23/2019 0.4mg Tablets as needed for M.DNito, [facility] [place] Sub chest pain Aspirin 81 1 by mouth 30tabs Matthew Menchaca, 07/23/[address] every day [place], [facility] [place] Brilinta 1 tab by mouth 90tabs Matthew Menchaca, 07/23/2019 90mg Tablets twice a day [place]on [facility] [place] Omeprazole 1 by mouth Unknown 07/23/[address] every day Immunizations Description No Information Available Vital Signs Date Vital Result Comment 07/24/2019 3:22pm Height 66 inches 5'6" Weight 156.00 lb with shoes Heart Rate 78 /min radial regular BP Systolic Sitting 114 mmHg Lue reg cuff BP Diastolic Sitting 74 mmHg Lue reg cuff BP Systolic Standing 114 mmHg Lue reg cuff BP Diastolic Standing 74 mmHg Lue reg cuff BMI (Body Mass Index) 25.2 kg/m2 Ejection Fraction 55-60% ECHO 07/20/19 01/15/2004 3:12pm Height 66 inches Weight 152.00 lb Heart Rate 67 /min BP Systolic Sitting 110 mmHg BP Diastolic Sitting 70 mmHg BP Systolic Standing 100 mmHg BP Diastolic Standing 70 mmHg BMI (Body Mass Index) 24.5 kg/m2 Results Description No Information Available Procedures Date Code Description Status 07/19/2019 47582 Stress ECHO Interpretation/Report Hospital Completed 07/19/2019 28905 Treadmill Interp/Report Only Completed 07/19/2019 76095 Stress Test Supervsn W/Out I/R Completed Medical Devices Description No Information Available Encounters Description No Information Available Assessments Description No Information Available Plan of Treatment Future Appointment(s):10/09/2019 3:40 pm - Sean Munoz M.D. at [facility] Functional Status Description No Information Available Mental Status Description No Information Available Referrals Description No Information Available
--- OUTSIDE RECORDS SUMMARY | 2019-08-30 08:14 | XMS REPORT | Continuity of Care Document ---
:1950 External Reference #:[id number] Author Name Brock Blake Problems Description No Information Available Social History Type Date Description Comments Sex Unknown Allergies, Adverse Reactions, Alerts Active Allergies Reaction Severity Comments Date PCN hives 01/15/2004 Medications Description No Information Available Immunizations Description No Information Available Vital Signs Date Vital Result Comment 01/15/2004 3:12pm Height 66 inches Weight 152.00 lb Heart Rate 67 /min BP Systolic Sitting 110 mmHg BP Diastolic Sitting 70 mmHg BP Systolic Standing 100 mmHg BP Diastolic Standing 70 mmHg BMI (Body Mass Index) 24.5 kg/m2 Results Description No Information Available Procedures Date Code Description Status 07/19/2019 53421 Stress ECHO Interpretation/Report Hospital Completed 07/19/2019 61015 Treadmill Interp/Report Only Completed 07/19/2019 98439 Stress Test Supervsn W/Out I/R Completed Medical Devices Description No Information Available Encounters Description No Information Available Assessments Description No Information Available Plan of Treatment 01/15/2004 - Sean Munoz M.D.785.1 PalpitationsComments:Discontinue caffeinated dietary items.maintain potassium greater than 4.oOffered beta carlita if symptoms are bothersome (might be useful in treating panic disorder as well); pt declining at present.Event monitor to characterize the rhythm disturbances.Further evaluation if syncope or near-syncope develops.Stress echo to ruleout ischemic heart disease and proarrythmia.Echo to evaluate for structural heart disease.IF above workup negative, prognosis is good.786.50 Chest Pain UnspecifiedComments:evaluation with Stress echo.aggressive risk factor modification.LDL goal <100.wt lossreg mod [id number] HypercholesterolemiaComments:suggested lipid lowering as per ATP III guidelines and followup with you to implement a program.Miscellaneous:The patient was advised of the potential serious health risks of persistant hypercholesterolemia including coronary atherosclerosis, myocardial infarction and stroke. Functional Status Description No Information Available Mental Status Description No Information Available Referrals Description No Information Available
--- OUTSIDE RECORDS SUMMARY | 2019-08-30 08:14 | XMS REPORT | Continuity of Care Document ---
:1950 External Reference #:[id number] Author Name Sean Munoz M.D. 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 Active Problems Provider Date Acute subendocardial infarction Lucy Laguerre MD, [facility], [facility] Onset: 01/2019 Hyperlipidemia Lucy Laguerre MD, [facility], [facility] Onset: 07/24/2019 Social History Type Date Description Comments Sex Unknown ETOH Use consumes 2-3 glasses of wine per week Tobacco Use Start: Unknown Patient has never smoked Recreational Drug Use Never Used Drugs Smoking Status Reviewed: 08/28/19 Patient has never smoked Exercise Type/Frequency Walks sporadically Exercise Type/Frequency Does cardiac rehab daily Once a week Allergies, Adverse Reactions, Alerts Active Allergies Reaction Severity Comments Date PCN hives 01/15/2004 Medications Active Medications SIG Qnty Indications Ordering Provider Date Lipitor 1 by mouth Unknown 07/23/2019 80mg Tablets every day Nitroglycerin 1 sl q5mins x3 Matthew Menchaca, 07/23/2019 0.4mg Tablets as needed for M.DNito, FAC, [facility] Sub chest pain Aspirin 81 1 by mouth 30tabs Matthew Menchaca, 07/23/[address] every day Chon, [facility], [facility] Brilinta 1 tab by mouth 90tabs Matthew Menchaca, 07/23/2019 90mg Tablets twice a day Chon, FAC, [facility] Omeprazole 1 by mouth Unknown 07/23/[address] every day Immunizations Description No Information Available Vital Signs Date Vital Result Comment 08/28/2019 1:14pm Height 66 inches 5'6" Weight 158.12 lb with shoes/sweatshirt Heart Rate 78 /min radial, regular BP Systolic Sitting 122 mmHg LA, reg cuff BP Diastolic Sitting 80 mmHg LA, reg cuff BP Systolic Standing 122 mmHg LA, reg cuff BP Diastolic Standing 82 mmHg LA, reg cuff BMI (Body Mass Index) 25.5 kg/m2 Ejection Fraction 55%-60% echo 07/20/19 07/24/2019 3:22pm Height 66 inches 5'6" Weight 156.00 lb with shoes Heart Rate 78 /min radial regular BP Systolic Sitting 114 mmHg Lue reg cuff BP Diastolic Sitting 74 mmHg Lue reg cuff BP Systolic Standing 114 mmHg Lue reg cuff BP Diastolic Standing 74 mmHg Lue reg cuff BMI (Body Mass Index) 25.2 kg/m2 Ejection Fraction 55-60% ECHO 07/20/19 Results Test Date Facility Test Result H/L Range Note CBC Auto 08/20/2019 [facility] [place] Blood 5.8 10^3/uL Normal 3.5-10.8 [address] [place] [address] [phone] Red Blood Count 4.27 10^6/uL Normal 3.70-4.87 Hemoglobin 12.9 g/dL Normal 12.0-16.0 Hematocrit 38 % Normal 35-47 Mean Corpuscular Volume 90 fL Normal 80-97 Mean Corpuscular Hemoglobin 30 pg Normal 27-31 Mean Corpuscular HGB Conc 34 g/dL Normal 31-36 Red Cell Distribution Width 14 % Normal 10-15 Platelet Count 221 10^3/uL Normal 150-450 Mean Platelet Volume 8.6 fL Normal 7.4-10.4 Abs Neutrophils 2.6 10^3/uL Normal 1.5-7.7 Abs Lymphocytes 2.6 10^3/uL Normal 1.0-4.8 Abs Monocytes 0.4 10^3/uL Normal 0-0.8 Abs Eosinophils 0.1 10^3/uL Normal 0-0.6 Abs Basophils 0.0 10^3/uL Normal 0-0.2 Abs Nucleated RBC 0.0 10^3/uL Granulocyte % 45.3 % Lymphocyte % 45.3 % Monocyte % 6.9 % Eosinophil % 1.9 % Basophil % 0.6 % Nucleated Red Blood Cells % 0.1 Comp Metabolic 08/20/2019 [facility] Sodium 140 mmol/L Normal 135-[address] [place] [address] [phone] Potassium 4.2 mmol/L Normal 3.5-5.0 Chloride 108 mmol/L Normal 101-111 Co2 Carbon Dioxide 29 mmol/L Normal 22-32 Anion Gap 3 mmol/L Normal 2-11 Glucose 88 mg/dL Normal 70-100 Blood Urea Nitrogen 13 mg/dL Normal 6-24 Creatinine 0.73 mg/dL Normal 0.51-0.95 BUN/Creatinine Ratio 17.8 Normal 8-20 Calcium 8.8 mg/dL Normal 8.6-10.3 Total Protein 6.5 g/dL Normal 6.4-8.9 Albumin 4.0 g/dL Normal 3.2-5.2 Globulin 2.5 g/dL Normal 2-4 Albumin/Globulin Ratio 1.6 Normal 1-3 Total Bilirubin 0.30 mg/dL Normal 0.2-1.0 Alkaline Phosphatase 93 U/L Normal 34-104 Alt 25 U/L Normal 7-52 Ast 23 U/L Normal 13-39 Egfr Non- 79.5 >60 Egfr 96.2 >60 2 Laboratory test 08/20/2019 [facility] Creatine 78 U/L Normal 10-223 [address] Kinase(CK) [place] [address] [phone] Troponin-I (TnI) 0.01 ng/mL <0.04 4 1 [id number] 2 Because ethnic data is not always readily available, this report includes an eGFR for both -Americans and non- Americans. The National Kidney Disease Education Program (NKDEP) does not endorse the use of the MDRD equation for patients that are not between the ages of 18 and 70, are , have extremes of body size, muscle mass, or nutritional status, or are non- or non-. According to the National Kidney Foundation, irrespective of diagnosis, the stage of the disease is based on the level of kidney function: Stage Description GFR(mL/min/1.73 m(2)) 1 Kidney damage with normal or decreased GFR 90 2 Kidney damage with mild decrease in GFR 60-89 3 Moderate decrease in GFR 30-59 4 Severe decrease in GFR 15-29 5 Kidney failure <15 (or dialysis) 3 [id number] 4 Troponin-I testing on Plasma Separator Tubes (PST) has a known false positive rate of 0.20-0.40%. All positive troponins reflex immediately to secondary confirmatory testing. Using the [employer] DxI 800 Access Immunoassay systems, the 99th percentile upper reference limit was demonstrated to be < 0.03 ng/mL. Procedures Date Code Description Status 08/28/2019 97135 EKG Tracing & Interpretation Completed 07/20/2019 17305 Left Heart Cath. Incl S/I Coronaries, Angio S/I V Gram If Completed Done 07/20/2019 36140 ECHO Transthorasic Realtime 2D W Doppler & Color Flow Hosp Completed 07/20/2019 82531 Treadmill Interp/Report Only Completed 07/20/2019 96913 Stress Test Supervsn W/Out I/R Completed 07/20/2019 56322 Percutaneous Transcatheter Placement Of Intracoronary Completed Stent 07/19/2019 63533 Stress ECHO Interpretation/Report Hospital Completed 07/19/2019 52253 Treadmill Interp/Report Only Completed 07/19/2019 82031 Stress Test Supervsn W/Out I/R Completed Medical Devices Description No Information Available Encounters Type Date Location Provider Dx Diagnosis Office Visit 07/24/2019 [facility] Lucy Gregory 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 [facility] MD Carlotta, (Nstemi) [facility], [facility] myocardial infarction E78.5 Hyperlipidemia, unspecified Office Visit 07/21/2019 8:09a [facility] Matthew Menchaca I25.10 Athscl heart Of [employer] Chief AT [facility] [place] Chon, [facility], disease of [facility] [place] coronary artery w/o ang pctrs Z98.61 Coronary angioplasty status Office Visit 07/21/2019 9:04a [facility] Juliocesar Rao I20.0 Unstable Assoc,gabriela Quiñonez M.D.,FACP angina Hospitalists K21.9 Gastro-esophageal reflux disease without esophagitis Office Visit 07/20/2019 8:06a [facility] Clarissa Melo, R07.9 Chest pain, Of [facility] AT [facility] [place] HAND unspecified R94.39 Abnormal result of other cardiovascular function study Office Visit 07/19/2019 [facility] R07.9 Chest pain, 9:03a gabriela Robbins PA unspecified Hospitalists K21.9 Gastro-esophageal reflux disease without esophagitis Assessments Date Code Description Provider 08/28/2019 I21.4 Non-St elevation (Nstemi) myocardial Sean Munoz M.D. infarction 08/28/2019 E78.5 Hyperlipidemia, unspecified Sean Munoz M.D. 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 08/28/2019 R07.9 Chest pain, unspecified Sean Munoz M.D. 08/28/2019 I49.8 Palpitations Sean Munoz M.D. 07/24/2019 I21.4 Non-St elevation (Nstemi) myocardial Lucy Laguerre MD, [facility], infarction [facility] 07/24/2019 E78.5 Hyperlipidemia, unspecified Lucy Laguerre MD, [facility], [facility] 07/21/2019 I25.10 Atherosclerotic heart disease of Matthew Menchaca M.D., [facility], [place] coronary artery without angina FSCAI pectoris 07/21/2019 Z98.61 Coronary angioplasty status Matthew Menchaca M.D., [facility], [facility] 07/21/2019 I20.0 Unstable angina Juliocesar Qui[facility]onez M.D.,[facility] 07/21/2019 K21.9 Gastro-esophageal reflux disease Juliocesar Quiñonez M.D., [facility]AC without esophagitis 07/20/2019 R07.9 Chest pain, unspecified Matthew Menchaca M.D., [facility], [facility] 07/20/2019 R07.9 Chest pain, unspecified Sean Munoz M.D. 07/20/2019 R07.9 Chest pain, unspecified Clarissa Melo NP 07/20/2019 R94.39 Abnormal result of other Clarissa Thuman, [place] HAND cardiovascular function study 07/20/2019 I25.110 Atherosclerotic heart disease of Matthew Menchaca M.D., [facility], [place] coronary artery with unstable FSCAI angina pectoris 07/20/2019 R07.9 Chest pain, unspecified Sally HawkinsDAISY peters 07/20/2019 K21.9 Gastro-esophageal reflux disease DAISY Mai without esophagitis 07/19/2019 R07.9 Chest pain, unspecified Kate Sethi M.D. 07/19/2019 R07.9 Chest pain, unspecified DAISY Mai 07/19/2019 K21.9 Gastro-esophageal reflux disease DAISY Mai without esophagitis Plan of Treatment Future Appointment(s):11/06/2019 3:30 pm - Beba Montanez N.PNito at [facility]09/21/2019 1:30 pm - Nurse Visit cc at [facility]2018 3:00 pm - Nurse Visit cc at [facility]11/02/2019 9:30 am - Sean Mnuoz M.D. at [facility]08/28/2019 - Sean Munoz M.D.I21.4 Non-St elevation (Nstemi) myocardial [id number] Hyperlipidemia, cnjqcbprjclC66.10 Atherosclerotic heart disease of [place] coronary artery without angina fmjqozgfO83.61 Coronary angioplasty bxaeecB29.9 Chest pain, unspecifiedNew Orders:Stress Test, Exercise Nuclear, Scheduled: 11/02/19Follow up:ov Beba 2 m ov JFM 6 mI49.8 PalpitationsNew Orders:Holter Monitor, Scheduled : 09/20/19Recommendations:consider Red Zebra lilia for phone to document rhythm with symptoms. Functional Status Description No Information Available Mental Status Description No Information Available Referrals Description No Information Available
[2019-08-30 08:19] VITALS: BP 110/74
--- NOTE | 2019-08-30 08:49 | UC ---
Complaint Female HPI - HPI Summary HPI Summary: 69-year-old woman comes in with a chief complaint of UTI symptoms for 2 days. She's had burning and urgency. No abdominal pain no fevers no chills no flank pain. Urinating makes the pain worse. The need to urinate frequently in the middle the night keeping her from getting sleep. - History Of Current Complaint Chief Complaint: UCGU Stated Complaint: URINARY ISSUE Time Seen by Provider: 08/30/19 08:39 Pain Intensity: 4 - Allergies/Home Medications Allergies/Adverse Reactions: Allergies Allergy/AdvReac Type Severity Reaction Status Date / Time mercury (elemental) Allergy Unknown Verified 08/30/19 08:19 Reaction Details Penicillins Allergy Hives Verified 08/30/19 08:19 PMH/Surg Hx/FS Hx/Imm Hx Previously Healthy: Yes Endocrine History: Dyslipidemia Cardiovascular History: Hypertension Other History Of: Anticoagulant Therapy - Surgical History Surgical History: Yes Surgery Procedure, Year, and Place: COLONOSCOPY ONLY. melanoma removal. CARDIAC STENT 07/09 - Family History Known Family History: Negative: Diabetes Family History: family history of angia pectoris in her father and breast cancer in her maternal grandmother. - Social History Alcohol Use: Weekly Alcohol Amount: 3 GLASSES OF WINE AT MOST Substance Use Type: None Smoking Status (MU): Never Smoked Tobacco - Immunization History Most Recent Influenza Vaccination: fall 2017 Most Recent Pneumonia Vaccination: never Review of Systems All Other Systems Reviewed And Are Negative: Yes Constitutional: Positive: Other - SEE HPI Skin: Positive: Negative Eyes: Positive: Negative ENT: Positive: Negative Respiratory: Positive: Negative Cardiovascular: Positive: Negative Gastrointestinal: Positive: Negative Genitourinary: Positive: Dysuria, Frequency, Urgency Motor: Positive: Negative Neurovascular: Positive: Negative Musculoskeletal: Positive: Negative Neurological: Positive: Negative Psychological: Positive: Negative Is Patient Immunocompromised?: No Physical Exam Triage Information Reviewed: Yes Appearance: Well-Appearing, No Pain Distress, Well-Nourished Vital Signs: Initial Vital Signs Temp 98.1 F 08/30/19 08:15 Pulse 80 08/30/19 08:15 Resp 18 08/30/19 08:15 BP 110/74 08/30/19 08:15 Pulse Ox 99 08/30/19 08:15 Vital Signs Reviewed: Yes Eye Exam: Normal Eyes: Positive: Conjunctiva Clear Neck: Positive: Supple Respiratory: Positive: Lungs clear, Normal breath sounds, No respiratory distress Cardiovascular: Positive: RRR Abdomen Description: Positive: Nontender, Soft. Negative: CVA Tenderness (R), CVA Tenderness (L) Musculoskeletal: Positive: Strength Intact, ROM Intact Neurological: Positive: Alert, Muscle Tone Normal Psychological: Positive: Age Appropriate Behavior Skin Exam: Normal Complaint Female Dx - Differential Dx/Diagnosis Provider Diagnosis: UTI (urinary tract infection) Discharge ED - Sign-Out/Discharge Documenting (check all that apply): Patient Departure All imaging exams completed and their final reports reviewed: No Studies - Discharge Plan Condition: Stable Disposition: HOME Prescriptions: Phenazopyridine 200 mg (NF) [Pyridium 200 MG tab *] 200 mg PO TID PRN #6 tab PRN Reason: Pain - Mild Sulfamethox/Trimethoprim DS* [Bactrim DS 800/160 TAB*] 1 tab PO BID #14 tab Patient Education Materials: Urinary Tract Infection in Women (ED) Referrals: Dior Benítez MD [Primary Care Provider] - Additional Instructions: FOLLOW UP WITH YOUR DOCTOR IF NOT COMPLETELY IMPROVED. GET RECHECKED SOONER IF YOUR CONDITION WORSENS; FEVER, YOU FEEL ILL OR ANY QUESTIONS OR CONCERNS. - Billing Disposition and Condition Condition: STABLE Disposition: Home
--- NOTE | 2019-08-31 17:37 | UC ---
- Progress Note Progress Note: urine prelim - Klbxiella Ornithinolytica Bactrim may cover per [place] kisha await sensitivity no change luisitoj 08/31/19 Course/Dx - Diagnoses Provider Diagnoses: UTI (urinary tract infection) Discharge ED - Sign-Out/Discharge Documenting (check all that apply): Post-Discharge Follow Up All imaging exams completed and their final reports reviewed: No Studies - Discharge Plan Condition: Stable Disposition: HOME Prescriptions: Phenazopyridine 200 mg (NF) [Pyridium 200 MG tab *] 200 mg PO TID PRN #6 tab PRN Reason: Pain - Mild Sulfamethox/Trimethoprim DS* [Bactrim DS 800/160 TAB*] 1 tab PO BID #14 tab Patient Education Materials: Urinary Tract Infection in Women (ED) Referrals: Dior Benítez MD [Primary Care Provider] - Additional Instructions: FOLLOW UP WITH YOUR DOCTOR IF NOT COMPLETELY IMPROVED. GET RECHECKED SOONER IF YOUR CONDITION WORSENS; FEVER, YOU FEEL ILL OR ANY QUESTIONS OR CONCERNS. - Billing Disposition and Condition Condition: STABLE Disposition: Home
== END 2019-08-30 08:58 | disposition home or self-care (01) ==
LOC: UCEAST 08:09
DX: N39.0 Urinary tract infection, site not specified (principal); I10 Essential (primary) hypertension; Z91.09 Other allergy status, other than to drugs and biological substances; Z88.0 Allergy status to penicillin
CPT/HCPCS: 81003; 87077; 87086; 87186; 99212; G0463